=== PATIENT | female | born 1935 | race Caucasian/White ===

== ENCOUNTER 2021-10-11 18:06 | Emergency (ER) | payer MEDICARE, OTHER, SELFPAY ==
[2021-10-11 18:22] VITALS: BP 137/55; PULSE 72; RESP 16; TEMP 37.1; O2SAT 100
--- NOTE | 2021-10-11 18:48 | ED.BACK ---
HPI - Back Pain/Injury General Chief Complaint: Back Pain/Injury Stated Complaint: Lower Back Pain Time Seen by Provider: 10/11/21 18:39 Source: patient and RN notes reviewed Mode of arrival: ambulatory Limitations: no limitations History of Present Illness HPI Narrative: Patient presents today complaining of 3-day history of low back pain. Denies any injury or fall. States she did lift up her 2-year-old granddaughter, but denies any known pain following. Denies numbness or tingling in the extremities. Denies any radiation of the pain. Denies any loss of bowel or bladder control. Denies any urinary symptoms to include frequency, dysuria, or hematuria. She currently rates her back pain 8 and has been taking Tylenol without relief. She is also been using icy hot and a heating pad. No recent antibiotic use. MD elicited complaint: back pain Related Data Home Medications Medication Instructions Recorded Confirmed amlodipine 10 mg PO DAILY 10/11/21 10/11/21 famotidine 20 mg PO BID 10/11/21 10/11/21 fluticasone propionate 50 mcg INTRANASAL DAILY 10/11/21 10/11/21 isosorbide mononitrate 60 mg PO DAILY 10/11/21 10/11/21 metoprolol succinate 100 mg PO DAILY 10/11/21 10/11/21 mirtazapine 7.5 mg PO HS 10/11/21 10/11/21 paroxetine HCl 10 mg PO DAILY 10/11/21 10/11/21 pravastatin 40 mg PO DAILY 10/11/21 10/11/21 torsemide 5 mg PO DAILY 10/11/21 10/11/21 Allergies Allergy/AdvReac Type Severity Reaction Status Date / Time No Known Allergies Allergy Unverified 06/10/12 19:04 Review of Systems Review of Systems: CONSTITUTIONAL: Denies body aches, fever, chills, or sweats. EYES: Denies visual changes, redness, or discharge. ENT: Denies rhinorrhea, congestion, sore throat, or otalgia. CARDIOVASCULAR: Denies chest pain, palpitations, or edema. RESPIRATORY: Denies cough or dyspnea. GASTROINTESTINAL: Denies abdominal pain, nausea, vomiting, or diarrhea. GENITOURINARY: Denies dysuria or hematuria. SKIN: Denies rash, itching, or wounds. MUSCULOSKELETAL: Denies joint pain, or myalgia.+ Low back pain NEUROLOGIC: Denies headache, numbness, tingling, or weakness. PSYCH: Denies depression or anxiety. [facility] Past Medical History Medical History (Updated 10/11/21 @ 18:54 by Winsome Mancia, [facility], ) Chronic kidney disease High cholesterol Hypertension Comments At time of signature, I have reviewed and agree with nursing past medical, surgical, social and family history unless otherwise noted. Please see nursing chart for further information. There is no relevant family history pertinent to the presenting complaint Exam Narrative: GENERAL: Well-appearing, well-nourished, and in no acute distress. HEAD: Normocephalic, atraumatic. EYES: EOMI. No redness or drainage. Conjunctivae normal. ENT: Mucous membranes pink and moist. NECK: Normal AROM. CHEST: No respiratory distress. Clear to auscultation. HEART: Regular rate and rhythm. No murmur appreciated. Normal peripheral pulses. ABDOMEN: Soft, nontender, nondistended, normal active bowel sounds. Mild left CVAT MUSCULOSKELETAL: No bony tenderness of the thoracic and lumbar spine.. Right lower lumbar paraspinal muscle tenderness. No SI joint tenderness bilaterally. Distal sensation intact. Saddle sensation intact. Capillary refill normal. Dorsiflexion and plantarflexion strong and equal against resistance. EXTREMITIES: Normal range of motion. No edema. SKIN: Warm, dry, no rash. Capillary refill normal. Normal skin turgor. NEURO: No focal deficits. Alert and oriented x3. Gait steady. PSYCH: Normal affect. No signs of depression or anxiety. Course Course Level of Care: Express Care Visit Vital Signs Vital signs: Vital Signs Temperature 98.7 F 10/11/21 18:22 Pulse Rate 72 10/11/21 18:22 Respiratory Rate 16 10/11/21 18:22 Blood Pressure 137/55 L 10/11/21 18:22 Pulse Oximetry 100 10/11/21 18:22 Temperature 98.7 F 10/11/21 18:22 Pulse Rate 72
== END 2021-10-11 19:00 | disposition home or self-care (01) ==
PROVIDERS: Emergency Provider Nurse Practitioner; PCP Internal Medicine
DX: N39.0 Urinary tract infection, site not specified (principal); E78.00 Pure hypercholesterolemia, unspecified; I12.9 Hypertensive chronic kidney disease with stage 1 through stage 4 chronic kidney disease, or unspecified chronic kidney disease; N18.9 Chronic kidney disease, unspecified
CPT/HCPCS: 81003; 87077; 87086; 87186; 99213; G0463

== ENCOUNTER 2021-12-25 17:33 | Emergency (ER) | payer MEDICARE, OTHER, SELFPAY ==
[2021-12-25 17:44] VITALS: BP 100/75; PULSE 66; RESP 18; TEMP 36.4; O2SAT 100
--- NOTE | 2021-12-25 18:02 | ED.FEMALEGU ---
HPI - Female Genitourinary General Chief complaint: Back Pain/Injury Stated complaint: Lower Back Pain Time Seen by Provider: 12/25/21 18:00 Source: patient, family, RN notes reviewed and old records reviewed Mode of arrival: ambulatory Limitations: no limitations History of Present Illness HPI Narrative: 86-year-old female accompanied by daughter presents to [facility] with 1 week duration of low back pain with some cloudy odorous urine noted. Patient reports no fevers, chills, or sweats, denies any urinary frequency, no burning with urination no supra pubic discomfort no nausea or vomiting or any known fevers. Patient admits that she does not drink enough water, usually drinks 2 sodas a day and drinks one cup of coffee. Patient reports that she has not taken any AZO for urinary problems. Patient denies any other symptoms, states history of kidney disease. MD elicited complaint: back pain and other (odorous urine) Pertinent past history: other (previous UTI, kidney disease) Onset (ago): week(s) (1) Related Data Home Medications Medication Instructions Recorded Confirmed amlodipine 10 mg PO DAILY 10/11/21 12/25/21 famotidine 20 mg PO BID 10/11/21 12/25/21 fluticasone propionate 50 mcg INTRANASAL DAILY 10/11/21 12/25/21 isosorbide mononitrate 60 mg PO DAILY 10/11/21 12/25/21 metoprolol succinate 100 mg PO DAILY 10/11/21 12/25/21 mirtazapine 7.5 mg PO HS 10/11/21 12/25/21 paroxetine HCl 10 mg PO DAILY 10/11/21 12/25/21 pravastatin 40 mg PO DAILY 10/11/21 12/25/21 torsemide 5 mg PO DAILY 10/11/21 12/25/21 Allergies Allergy/AdvReac Type Severity Reaction Status Date / Time No Known Allergies Allergy Unverified 06/10/12 19:04 Review of Systems Review of Systems: CONSTITUTIONAL: Denies fever, chills, or sweats. EYES: Denies visual changes, redness, or discharge. ENT: Denies rhinorrhea, congestion, sore throat, or otalgia. CARDIOVASCULAR: Denies chest pain, palpitations, or edema. RESPIRATORY: Denies cough or dyspnea. GASTROINTESTINAL: Denies abdominal pain, nausea, vomiting, or diarrhea. GENITOURINARY: Denies dysuria or hematuria, states urine is cloudy and odorous SKIN: Denies rash or itching. MUSCULOSKELETAL: Positive for low back pain, joint pain, or myalgia.DENIES any flank pain NEUROLOGIC: Denies headache, numbness, or weakness. PSYCHIATRIC: Denies anxiety or depression. All systems reviewed & are unremarkable except as noted in HPI and below PMFSH Past Medical History Medical History (Updated 12/25/21 @ 19:46 by Jael Gonzalez NP) Chronic kidney disease High cholesterol Hypertension UTI (urinary tract infection) Surgical History Surgical History (Updated 12/25/21 @ 19:46 by Jael Gonzalez NP) H/O repair of right rotator cuff History of hysterectomy Social History Social History (Updated 12/25/21 @ 19:44 by Jael Gonzalez NP) Smoking status: Never smoker Alcohol intake: current Alcohol use details: rare social Substance use: never Living arrangements: with family Gender identity (if verbalized by the patient): Female Exam Narrative: GENERAL: Well-appearing, well-nourished, and in no acute distress. HEAD: Normocephalic, atraumatic. EYES: PERRLA and EOMI. ENT: Nares clear, no rhinorrhea or epistaxis. Mucous membranes moist. TMs normal with good light reflex throat pink with no lesions or exudates or tonsillar enlargement NECK: Supple. No lymphadenopathy CHEST: Clear to auscultation. No respiratory distress. SaO2 100% on room air HEART: Regular rate and rhythm. No murmur heard. Normal peripheral pulses. ABDOMEN: Soft, nontender, nondistended, normal active bowel sounds. Reports low back pain denies any CVA tenderness on palpation EXTREMITIES: Normal range of motion. No edema. SKIN: Warm, dry, no rash. NEURO: No focal deficits. Alert and oriented x3. Course Course Level of Care: Express Care Visit Vital Signs Vital signs: Vital Signs Temperature 36.4 C L 12/25/21
== END 2021-12-25 18:21 | disposition home or self-care (01) ==
PROVIDERS: Emergency Provider Registered Nurse; PCP Internal Medicine
DX: N39.0 Urinary tract infection, site not specified (principal); M54.50 Low back pain, unspecified; I12.9 Hypertensive chronic kidney disease with stage 1 through stage 4 chronic kidney disease, or unspecified chronic kidney disease; N18.9 Chronic kidney disease, unspecified; E78.00 Pure hypercholesterolemia, unspecified
CPT/HCPCS: 81003; 87077; 87086; 87186; 99213; G0463

== ENCOUNTER 2022-06-29 21:45 | Inpatient (IN) | payer MEDICARE, OTHER, SELFPAY ==
--- NOTE | ~2022-06-29 | US_ITS ---
EXAMINATION: US carotid duplex BI DATE: 06/30/2022 08:21 INDICATION: Right-sided weakness TECHNIQUE: Grayscale, color Doppler, and pulsed Doppler images of the cervical carotid arteries were obtained. The degree of vessel stenosis is placed in one of the following categories: normal, <50%, 5 0-69%, >=70% but less than near-occlusion, near-occlusion, or total occlusion. Note that percent sten osis relative to normal distal artery lumen diameter is indirectly measured from velocity measurement s as described by Matt, et al. Radiology 2003; 229:340-346. Notes: Normal: Peak systolic velocity <125 centimeters/sec and no plaque <50%. Peak systolic velocity <125 ( EDV <40; ICA/CCA PSV ratio <2.0; used these factors only a tandem lesions or low cardiac output or co ntralateral disease) 50-69 %: PSV 125-230 (EDV 40-100; ratio 2-4) >= 70% but less than near occlusion: PSV greater than 230 (EDV > 100; ratio> 4.0) Near Occlusion: PSV that is variable; markedly narrowed lumen Occlusion: Absent flow on color/spectral Doppler and no lumen on herrmann scale. COMPARISON: None. FINDINGS: RIGHT: The right common carotid artery (CCA) peak systolic velocity (PSV) is 74 cm/s. The right internal car otid artery (ICA) PSV is 93 cm/s. The right ICA end-diastolic velocity (EDV) is 22 cm/s. The right IC A/CCA PSV ratio is 1.2. The external carotid artery (ECA) PSV is 102 cm/s. There is antegrade flow in the right vertebral artery. LEFT: The left CCA PSV is 96 cm/s. The left ICA PSV is 70 cm/s. The left ICA EDV is 13 cm/s. The left ICA/C CA PSV ratio is 0.7. The ECA PSV is 94 cm/s. There is antegrade flow in the left vertebral artery. IMPRESSION: 1. Less than 50% stenosis in the right internal carotid artery by sonographic criteria. 2. Less than 50% stenosis in the left internal carotid artery by sonographic criteria. Reviewed, dictated and finalized at location A. IMPRESSION: 1. Less than 50% stenosis in the right internal carotid artery by sonographic [place]. 2. Less than 50% stenosis in the left internal carotid artery by sonographic flex torres.
--- NOTE | ~2022-06-29 | CT_ITS ---
EXAMINATION: CT abdomen pelvis wo con DATE: 06/30/2022 00:53 INDICATION: Right rib fractures. Right-sided pain and tenderness. TECHNIQUE: Computed tomography (CT) of the abdomen and pelvis was performed without intravenous contr ast. The dose-length product was 230.80 mGy-cm. Automated exposure control and iterative reconstructi on technique were employed. COMPARISON: CT dated 08/20/2014. FINDINGS: There are acute right ninth and 10th rib fractures. Heart size normal. No significant pleur al or pericardial effusion. Small hiatal hernia. There is dependent atelectasis. Small subcentimeter hypodensity of the liver, likely benign. The spleen, pancreas, adrenal glands are unremarkable. There is bilateral renal atrophy. Gallbladder is present. Colonic diverticulosis without evidence for dive rticulitis. Nonobstructive bowel gas pattern. No free air or free fluid. The spleen, pancreas, adrena l glands are unremarkable. No renal/ureteral stones. Bladder is unremarkable. No significant vascular abnormality. No lymphadenopathy. Moderate lumbar spondylosis. IMPRESSION: 1. Acute right ninth and 10th rib fractures. 2: No acute abnormality of the abdomen or pelvis. Reviewed, dictated and finalized at location A.
--- NOTE | ~2022-06-29 | CT_ITS ---
EXAMINATION: CT brain wo con DATE: 07/02/2022 18:25 INDICATION: Right-sided hemiparesis TECHNIQUE: Computed tomography (CT) of the head was performed without intravenous contrast. Sagittal and coronal reconstructions were performed. The mA was adjusted according to patient size. Iterative reconstruction technique was employed. The dose-length product was 605.33 mGy-cm. COMPARISON: Brain MR dated 06/30/2022 FINDINGS: No acute intracranial hemorrhage, acute infarction or abnormal extra axial fluid collection. Again se en is a 3.8 x 2.3 x 3.3 cm probably cystic mass in the left parietal lobe and a more ill-defined and slightly higher attenuation mass in the pericallosal left frontal lobe which correspond to enhancing lesions on the prior brain MR concerning for metastatic disease. A few additional smaller enhancing l esions seen on the prior MRI are more difficult to distinguish from the surrounding brain on the curr ent noncontrast CT. There is moderate scattered white matter hypoattenuation consistent with chronic small vessel ischemic disease. Ventricles are normal in size with mild mass effect upon the left late ral ventricle resulting from the pericallosal lesion. Changes of bilateral intraocular lens replaceme nt. The orbits, paranasal sinuses and mastoid air cells are normal. IMPRESSION: 1. A couple intra-axial masses in the left frontal and parietal lobes which along with a few addition al more subtle lesions all demonstrate enhancement on prior brain MR most likely representing metasta tic disease. No hemorrhage or other acute intracranial process. Reviewed, dictated and finalized at location A. IMPRESSION: 1. A couple intra-axial masses in the left frontal and parietal lobes which gris ng with a few additional more subtle lesions all demonstrate enhancement on glenn or brain MR most likely representing metastatic disease. No hemorrhage or other acute intracranial process.
--- NOTE | ~2022-06-29 | CT_ITS ---
EXAMINATION: CT chest high resolution wo dc DATE: 06/30/2022 14:34 INDICATION: Metastatic disease. TECHNIQUE: Computed tomography (CT) of the chest was performed without intravenous contrast. The dose -length product was 124.21 mGy-cm. Automated exposure control and iterative reconstruction technique were employed. COMPARISON: CT abdomen dated 06/30/2022 FINDINGS: There is atherosclerosis of the aorta. Small hiatal hernia. Fluid in the superior pericardi al recess noted. No lymphadenopathy. Acute right ninth and 10th rib fractures. No pneumothorax. There is apical pleural thickening/scarring. Emphysema. No endobronchial lesions. There is dependent atele ctasis. There are scattered calcified granulomata. No focal airspace consolidation. Mild thoracic spo ndylosis. No focal lytic or blastic lesions. IMPRESSION: 1. Acute right ninth and 10th rib fractures. 2: Emphysema. 3: Small hiatal hernia. Reviewed, dictated and finalized at location A.
--- NOTE | ~2022-06-29 | XR_ITS ---
[[id number] ] INDICATION: Status post fall. Right rib pain. TECHNIQUE: Frontal projection of the upper right ribs, frontal projection of the lower right ribs, ob lique projection of all the right ribs, frontal inspiratory chest x-ray for interpretation. FINDINGS: There are acute right ninth and 10th there is a possible right sixth rib fracture. Rib frac tures.. There are no soft tissue abnormality seen. The lungs are clear. The lungs are hyperinflate d which is consistent with, but not diagnostic of chronic obstructive pulmonary disease. There are alexis rgical changes in the right humeral head. There is atherosclerosis. Osteopenia. No pneumothorax. IMPRESSION: 1: Acute right ninth and 10th rib fractures. Possible right sixth rib fracture. Reviewed, dictated and finalized at location A.
--- NOTE | ~2022-06-29 | MR_ITS ---
EXAMINATION: MR brain/brain stem wo/w con DATE: 06/30/2022 07:55 INDICATION: Right-sided weakness TECHNIQUE: Magnetic resonance imaging (MRI) of the brain and brainstem was performed without with 10 cc MultiHance intravenous contrast. Sequences included sagittal and axial T1-weighted SE, axial diffu carmelo-weighted FS SE, axial T2*-weighted GRE, axial T2-weighted FLAIR Propeller, and axial T2-weighted Propeller. Apparent diffusion coefficient (ADC) maps were created. COMPARISON: None. FINDINGS: No acute intracranial hemorrhage or infarction. There are at least 6 enhancing masses in th e left hemisphere involving the parietal lobe, largest measuring 3.6 x 2.3 cm with central necrosis. There is a possible subtle enhancing lesion in the right parietal lobe medially, series 9 image 18. N o ventriculomegaly or midline shift. There are scattered moderate periventricular and subcortical whi te matter changes, most likely related to small vessel ischemic disease (microangiopathy). Paranasal sinuses are pneumatized. Orbits are symmetric without disconjugate gaze. Structures of the posterior fossa including 7/8th cranial nerve complexes are normal. IMPRESSION: 1. Multiple enhancing masses of the left parietal and possibly the right parietal lobes, most likely metastatic disease. 2: Chronic age-related findings. Dr. Evan Villagomez discussed with the patient's nurse INESSA under medical floor at 06/30/2022 09:20 CDT. Reviewed, dictated and finalized at location A. IMPRESSION: 1. Multiple enhancing masses of the left parietal and possibly the right pariet al lobes, most likely metastatic disease. 2: Chronic age-related findings. Dr. Evan Villagomez discussed with the patient's nurse INESSA under medical floor at 06/08 09:20 CDT.
[2022-06-29 21:56] VITALS: BP 158/76; PULSE 64; RESP 18; TEMP 36.5; O2SAT 100
[2022-06-29] MEDS: HYDROcodone/acetaminophen (*CRX) 5-325 MG TABLET 1 TAB PO (23:36)
[2022-06-29 23:48] LABS: Basophils Absolute Auto 0.1 K/mm3 (0.0-0.1); Basophils Percent Auto 0.5 % (0.2-1.2); Eosinophils Absolute Auto 0.2 K/mm3 (0-0.3); Eosinophils Percent Auto 1.8 % (0-4.4); Hematocrit 40.5 % (37.0-47.0); Hemoglobin 13.4 g/dL (12.0-15.0); Immature Granulocyte Absolute 0.03 K/mm3 (0.00-0.031); Immature Granulocyte Percent A 0.2 % (0-0.5); Lymphocytes Absolute Auto 1.27 K/mm3 (0.9-3.2); Lymphocytes Percent Auto 10.3 % (18.3-44.2); Mean Corpuscular HGB Conc 33.1 g/dl (32-36); Mean Corpuscular Hemoglobin 31.1 pg (26-34); Mean Platelet Volume 10.8 fl (7.4-10.4); Monocytes Absolute Auto 0.9 K/mm3 (0.1-0.6); Monocytes Percent Auto 7.2 % (2.6-8.5); Neutrophils Absolute Auto 9.9 K/mm3 (1.3-6.7); Platelet Count Result 235 k/mm3 (150-375); Red Blood Count 4.31 M/mm3 (4.2-5.4); Red Cell Distribution Width 12.4 % (11.5-14.5); White Blood Count 12.4 K/mm3 (4.5-10.0)
[2022-06-30] VITALS (13 sets, daily range): BP systolic 122–179; BP diastolic 48–98; PULSE 52–69; RESP 14–20; TEMP 35.7–36.9; O2SAT 94–98; BMI 23.1
--- NOTE | 2022-06-30 | ECHO_ITS ---
Patient Info Name: Afia Benjamin Age: 86 years : 1935 Gender: Female Ht: 61 in Wt: 122 lbs BSA: 1.55 m2 HR: 61 bpm BP: 179 / 60 mmHg Heart Rhythm: Sinus Rhythm Exam Date: 06/30/2022 2:06 PM Exam Location: [facility] Patient Status: Inpatient Admit Date: 06/29/2022 Staff Ordering Physician: Michael Branham Tank Worker: Maico Webster RDCS Attending Provider: Xiang Zacarias MD Referring Physician: Yonas CROW; Exam Type: CA echo doppler color flow Study Info Indications - CVA Complete two-dimensional, color flow and Doppler transthoracic echocardiogram is performed. Summary 1. Normal left ventricular size with borderline concentric hypertrophy. Sigmoid septum noted. Good systolic function of all segments with ejection fraction of 65-70%. Grade 2 diastolic dysfunction is present. 2. Complete two-dimensional, color flow and Doppler transthoracic echocardiogram is performed. 3. Left atrial chamber dimension is moderately enlarged. 4. Unable to calculate pulmonary artery pressure on this study. 5. No significant valvular stenosis or regurgitation. 6. Normal sinus rhythm. Recommendations * Normal left ventricular size with borderline concentric hypertrophy and sigmoid septum. Ejection fraction 65-70%. Grade 2 diastolic dysfunction is present. No segmental wall motion abnormalities. Left Ventricle Left ventricular chamber dimension is normal. Left ventricular systolic function is normal, estimated at 65-70%. There is mildly increased left ventricular wall thickness. Left ventricular septal wall motion is normal. The left ventricular diastolic function is grade II diastolic dysfunction. Right Ventricle Right ventricular chamber dimension is normal. Right ventricular systolic function is normal. Left Atria Left atrial chamber dimension is moderately enlarged. Right Atria Right atrial chamber dimension is normal. Aortic Valve The aortic valve is trileaflet. There is no aortic valve sclerosis. There is no aortic valve stenosis. There is no aortic valve regurgitation. Pulmonic Valve The pulmonic valve is normal. There is no pulmonic valve stenosis. There is no pulmonic regurgitation. Mitral Valve The mitral valve has normal leaflets. There is no mitral valve stenosis. There is trace mitral valve regurgitation. The mitral valve annulus is mildly calcified. Tricuspid Valve The tricuspid valve leaflets are normal. There is no significant tricuspid valve stenosis. There is trace tricuspid valve regurgitation. No pulmonary hypertension, estimated pulmonary arterial systolic pressure is Empty. Pericardium/Pleural The pericardium appears normal. There is no pericardial effusion. Inferior Vena Cava Normal inferior vena cava with >50% collapse upon inspiration consistent with Empty right atrial pressure, Empty. Aorta The aortic root size at the sinus of Valsalva is normal. The prox ascending aorta size is normal. Left Ventricular Outflow Tract Name Value Normal LVOT 2D LVOT Diameter 1.8 cm LVOT Doppler LVOT Peak Gradient
[2022-06-30 00:05] LABS: Anion Gap 14 mmol/L (8-16); Blood Urea Nitrogen 37 mg/dL (7-17); Calcium 9.5 mg/dL (8.4-10.2); Carbon Dioxide 24 mmol/L (22-30); Chloride 105 mmol/L (98-107); Estimated CRCL calculation 16 ml/min; Estimated Glomerular Filt Rate 27; Glucose 99 mg/dL (65-110); Potassium 3.9 mmol/L (3.4-5.0); Sodium 143 mmol/L (137-145)
--- NOTE | 2022-06-30 00:42 | ED.FALL ---
HPI - Fall General Chief Complaint: Fall Stated Complaint: Fall, Side Pain, Denies Head Time Seen by Provider: 06/29/22 23:20 History of Present Illness HPI Narrative: Per family at bedside, about 6 days ago the patient had had a bad headache and started having weakness in her right side, she had seen her doctor who had arranged for outpatient work-up for her possible TIA, while she was still slightly unsteady she was coming out of the shower and lost her balance and fell onto her right side Related Data Home Medications Medication Instructions Recorded Confirmed amlodipine 10 mg tablet 10 mg PO DAILY 10/11/21 06/30/22 famotidine 20 mg tablet 20 mg PO BID 10/11/21 06/30/22 isosorbide mononitrate 60 mg 60 mg PO QAM 10/11/21 06/30/22 tablet,extended release 24 hr metoprolol succinate 100 mg 100 mg PO DAILY 10/11/21 06/30/22 tablet,extended release 24 hr mirtazapine 7.5 mg tablet 7.5 mg PO HS 10/11/21 06/30/22 paroxetine HCl 10 mg tablet 10 mg PO DAILY 10/11/21 06/30/22 pravastatin 40 mg tablet 40 mg PO DAILY 10/11/21 06/30/22 torsemide 10 mg tablet 5 mg PO DAILY 10/11/21 06/30/22 aspirin 81 mg tablet 81 mg PO DAILY 06/30/22 06/30/22 Allergies Allergy/AdvReac Type Severity Reaction Status Date / Time niacin Allergy Redness of Verified 06/29/22 21:47 Skin Review of Systems Review of Systems: CONST: No fever. HEENT: No sore throat C/V: No chest pain RESP: Not short of breath unless she is trying to take deep breaths GI: Reports abdominal pain : No dysuria. M/S: No joint pain. SKIN: No rash. NEURO: Weakness right arm/leg PSYCH: [No depression] PMFSH Past Medical History Medical History Chronic kidney disease High cholesterol Hypertension UTI (urinary tract infection) Surgical History Surgical History H/O repair of right rotator cuff History of hysterectomy Family History Family History Father Acute myocardial infarction Sibling Ovarian cancer Social History Social History Smoking status: Never smoker Alcohol intake: former Alcohol use details: rare social Substance use: never Gender identity (if verbalized by the patient): Female Spiritual care concerns: No Exam Narrative: EXAMINATION OF ORGAN SYSTEMS/BODY AREAS: Constitutional: Vital signs per nursing GENERAL: Appears slightly uncomfortable in pain, right arm held close to body HEAD: Normal with no signs of head trauma. EYES: EOMI, conjunctiva normal ENT: Hearing grossly intact LUNGS: Clear lungs bilaterally, no severe respiratory distress HEART: [Regular rate and rhythm] ABD: [Soft], [tender to palpation] right side EXT: Normal range of motion SKIN: [No rashes or lesions.] NEURO: [Alert and oriented x 3. Very minimal drift of RUE compared to left but otherwise good strength.] PSYCH: Normal affect Course Vital Signs Vital signs: Vital Signs Temperature 97.7 F 06/29/22 21:56 Pulse Rate 64 06/29/22 21:56 Respiratory Rate 18 06/29/22 21:56 Blood Pressure 158/76 H 06/29/22 21:56 Pulse Oximetry 100 06/29/22 21:56 Oxygen Delivery Room Air 06/29/22 21:56 Temperature 97.2 F L 06/30/22 02:00 Pulse Rate 68 06/30/22 02:00 Respiratory Rate 18 06/30/22 02:00 Blood Pressure 157/58 H 06/30/22 02:00 Pulse Oximetry 96 06/30/22 02:00 Oxygen Delivery Room Air 06/30/22 02:20 MDM - Fall MDM Narrative Medical decision making narrative: 86-year-old female presents with fall from shower and rib pain, vitals stable here, XR of ribs do show fractures; with her abdominal pain will obtain a CT to rule out intra-abdominal injury. Given her age and the multiple broken ribs, as well as her recent right-sided weakness concerning for stroke that likely led to her falls, I do feel she should be admit
[2022-06-30 01:47] LABS: SARS-CoV-2 RNA PCR Negative
--- NOTE | 2022-06-30 03:00 | PM.IMHP ---
H&P: HPI History of Present Illness Date/Time: 06/30/22 0300 Chief Complaint: right sided weakness Narrative: Patient is an 86-year-old female with a past medical history of hypertension, hyperlipidemia, chronic kidney disease who presented to the ED after falling in the shower. Patient stated that she got a little dizzy while showering and fell out and was half and half out sugars screaming her daughter came and saw her. She stated about 2 weeks ago she went to [facility], when she got back she she was feeling fine, however, the next morning she woke up with right sided upper and lower extremity weakness and just felt Weird. She stated that her symptoms have been getting better, however, she is still having some right leg weakness. She denied having any slurred speech, facial droop, visual changes, or loss of conscientiousness. She did go to see her PCP who told her that she had a stroke, but it does not seem that she had any further workup. She did state that she has been able to walk. She also stated that she is aware that she broke two ribs. Currently she stated that she is comfortable. She denies any chest pain, shortness of breath, nausea, vomiting, diarrhea, constipation, weakness, fatigue. MRI and carotid dopplers are ordered. Patient is being admitted to the hospitalist service under observation Review of Systems Review of Systems: All systems reviewed & are unremarkable except as noted in HPI and below PMFSH Past Medical History Medical History (Updated 06/30/22 @ 13:11 by Kuldeep Urrutia MD) Chronic kidney disease High cholesterol Hypertension UTI (urinary tract infection) Surgical History Surgical History H/O repair of right rotator cuff History of hysterectomy Family History Family History (Updated 06/30/22 @ 07:55 by NEMO Chacon) Father Acute myocardial infarction Stomach cancer Heart disease Sibling Ovarian cancer Stomach cancer Diabetes mellitus Social History Social History Smoking status: Never smoker Alcohol intake: former Alcohol use details: rare social Substance use: never Gender identity (if verbalized by the patient): Female Spiritual care concerns: No Meds Home Medications and Allergies Home Medications Medication Instructions Recorded Confirmed Type amlodipine 10 mg tablet 10 mg PO DAILY 10/11/21 06/30/22 History famotidine 20 mg tablet 20 mg PO BID 10/11/21 06/30/22 History isosorbide mononitrate 60 mg 60 mg PO QAM 10/11/21 06/30/22 History tablet,extended release 24 hr metoprolol succinate 100 mg 100 mg PO DAILY 10/11/21 06/30/22 History tablet,extended release 24 hr mirtazapine 7.5 mg tablet 7.5 mg PO HS 10/11/21 06/30/22 History paroxetine HCl 10 mg tablet 10 mg PO DAILY 10/11/21 06/30/22 History pravastatin 40 mg tablet 40 mg PO DAILY 10/11/21 06/30/22 History torsemide 10 mg tablet 5 mg PO DAILY 10/11/21 06/30/22 History aspirin 81 mg tablet 81 mg PO DAILY 06/30/22 06/30/22 History Allergies Allergy/AdvReac Type Severity Reaction Status Date / Time niacin Allergy Redness of Verified 06/29/22 21:47 Skin Vital Signs Vital Signs - 24 hr 06/29/22 21:56 06/30/22 01:27 06/30/22 02:20 Temperature 97.7 F Pulse Rate 64 69 Respiratory Rate 18 20 Blood Pressure 158/76 H 157/66 H Pulse Oximetry 100 96 Oxygen Delivery Room Air Room Air 06/30/22 02:00 06/30/22 04:00 06/30/22 06:00 Temperature 97.2 F L 96.5 F L Pulse Rate 68 55 L 52 L Respiratory Rate 18 16 Blood Pressure 157/58 H 152/50 H Pulse Oximetry 96 94 Oxygen Delivery Exam Const: General: cooperative, healthy appearing, no acute distress, well developed, alert and awake Nutritional Appearance: well nourished Orientation/consciousness: patient oriented x3 Limitations: no limitations HENMT: Head: normal to inspection Ears: hearin
[2022-06-30] MEDS: FAMOTIDINE 20 MG TABLET PO ×2 (10:25→17:34)
[2022-06-30] MEDS: amLODIPine BESYLATE 5 MG TABLET 10 MG PO (10:25)
[2022-06-30] MEDS: ASPIRIN 81 MG CHEWABLE TABLET PO (10:25)
[2022-06-30] MEDS: METOPROLOL SUCCINATE EXT REL 100 MG TABCR PO (10:25)
[2022-06-30] MEDS: ISOSORBIDE MONONITRATE 60 MG TAB.ER.24H PO (10:25)
[2022-06-30] MEDS: PARoxetine 10 MG TABLET PO (10:26)
[2022-06-30] MEDS: PRAVASTATIN SODIUM 20 MG TABLET 40 MG PO (10:26)
[2022-06-30] MEDS: TORSEMIDE 10 MG TABLET 5 MG PO (10:26)
[2022-06-30 10:27] LABS: Basophils Percent Auto 0.5 % (0.2-1.2); Eosinophils Absolute Auto 0.3 K/mm3 (0-0.3); Eosinophils Percent Auto 3.8 % (0-4.4); Hematocrit 41.7 % (37.0-47.0); Hemoglobin 13.2 g/dL (12.0-15.0); Immature Granulocyte Absolute 0.02 K/mm3 (0.00-0.031); Immature Granulocyte Percent A 0.2 % (0-0.5); Immature Platelet Fraction Pct 4.2 % (0.9-11.2); Lymphocytes Absolute Auto 1.58 K/mm3 (0.9-3.2); Lymphocytes Percent Auto 19.5 % (18.3-44.2); Mean Corpuscular HGB Conc 31.7 g/dl (32-36); Mean Corpuscular Volume 97.9 fl (80-100); Mean Platelet Volume 10.9 fl (7.4-10.4); Monocytes Absolute Auto 0.6 K/mm3 (0.1-0.6); Monocytes Percent Auto 7.8 % (2.6-8.5); Neutrophils Absolute Auto 5.5 K/mm3 (1.3-6.7); Neutrophils Percent Auto 68.2 % (45.5-73.1); Nucleated Red Blood Cells Perc 0.2 % (0.0-0.2); Platelet Count Result 239 k/mm3 (150-375); Red Blood Count 4.26 M/mm3 (4.2-5.4); Red Cell Distribution Width 12.8 % (11.5-14.5); White Blood Count 8.1 K/mm3 (4.5-10.0)
[2022-06-30 10:30] LABS: Alanine Aminotransferase 18 U/L (6-35); Albumin Level 4.1 g/dL (3.5-5.1); Alkaline Phosphatase 74 U/L (38-126); Anion Gap 9 mmol/L (8-16); Aspartate Amino Transferase 28 U/L (14-36); Bilirubin,Total 0.5 mg/dL (0.2-1.3); Blood Urea Nitrogen 31 mg/dL (7-17); Calcium 9.3 mg/dL (8.4-10.2); Carbon Dioxide 26 mmol/L (22-30); Chloride 106 mmol/L (98-107); Estimated CRCL calculation 17 ml/min; Estimated Glomerular Filt Rate 29; Glucose 141 mg/dL (65-110); Potassium 3.4 mmol/L (3.4-5.0); Sodium 141 mmol/L (137-145)
--- NOTE | 2022-06-30 11:15 | P.PNIM_ITS ---
Progress Note: A&P Assessment and Plan (1) Brain lesion: Code(s): G93.9 - Disorder of brain, unspecified Status: Acute Assessment and Plan: * MRI indicated 6 metastatic lesions consistent with cancer * CA 125, 19-1, carcinoembryonic antigen ordered and pending * CT of the chest order to see if a primary source is identified * CT abd/pel just indicate a dense lesion in the liver. * Onc consulted thank you (2) Rib fractures: Code(s): S22.49XA - Multiple fractures of ribs, unspecified side, initial encounter for closed fracture Status: Acute Assessment and Plan: * Rib fracture noted on CT ribs 9-10 fracture * Pain control * Monitor for changes (3) Hypertension: Code(s): I10 - Essential (primary) hypertension Status: Acute Assessment and Plan: * BP elevated at 152/50 * Continue home medications * Trend BP * Adjust therapy as indicated (4) Chronic kidney disease: Code(s): N18.9 - Chronic kidney disease, unspecified Status: Acute Assessment and Plan: * Current BUN/Cr 31/1.70 * Unknown baseline * avoid nephrotoxic medications * Trend labs * Adjust therapy as indicated (5) High cholesterol: Code(s): E78.00 - Pure hypercholesterolemia, unspecified Status: Acute Assessment and Plan: * Continue home statin medications (6) Paraparesis: Code(s): G82.20 - Paraplegia, unspecified Status: Acute Assessment and Plan: * Notable right sided weakness 2 weeks ago * Right side arm and leg affected * Continue home aspirin, statin, consider Plavix * Brain MRI Multiple enhancing masses of the left parietal and possibly the right parietal lobes, most likely metastatic disease. * Carotid Doppler <50% carotid doppler * NIH not valid since last known normal was 2 weeks ago * Not qualified for tPA * Neurology consulted Time Spent With Patient Time with patient: Greater than 35 minutes Subjective Date/time seen: 06/30/221114 Interval history: 06/30/221114 Patient seems to be doing okay today. I did explain to her what her MRI findings were with some 6 lesions. Consult Oncology and started the workup for metastatic disease. Patient seems to take it okay but then not okay. She denies any chest pain, shortness of breath, nausea, vomiting, diarrhea, constipation. her daughter was present as well and would like for the patient to have outpatient PT OT. 06/30/22? 0300 ? Patient is an 86-year-old female with a past medical history of hypertension, hyperlipidemia, chronic kidney disease who presented to the ED after falling in the shower.? Patient stated that she got a little dizzy while showering and fell out and was half and half out sugars screaming her daughter came and saw her.? She stated about 2 weeks ago she went to [facility], when she got back she she was feeling fine, however, the next morning she woke up with right sided upper and lower extremity weakness and just felt Weird. ? She stated that her symptoms have been getting better, however, she is still having some right leg weakness.? She denied having any slurred speech, facial droop, visual changes, or loss of conscientiousness.? She did go to see her PCP who told her that she had a stroke, but it does not seem that she had any further workup.? She did state that she has been able to walk.? She also stated that she is aware that she broke two ribs.? C
--- NOTE | 2022-06-30 11:15 | PM.IMPN ---
Progress Note: A&P Assessment and Plan (1) Brain lesion: Code(s): G93.9 - Disorder of brain, unspecified Status: Acute Assessment and Plan: MRI indicated 6 metastatic lesions consistent with cancer CA 125, 19-1, carcinoembryonic antigen ordered and pending CT of the chest order to see if a primary source is identified CT abd/pel just indicate a dense lesion in the liver. Onc consulted thank you (2) Rib fractures: Code(s): S22.49XA - Multiple fractures of ribs, unspecified side, initial encounter for closed fracture Status: Acute Assessment and Plan: Rib fracture noted on CT ribs 9-10 fracture Pain control Monitor for changes (3) Hypertension: Code(s): I10 - Essential (primary) hypertension Status: Acute Assessment and Plan: BP elevated at 152/50 Continue home medications Trend BP Adjust therapy as indicated (4) Chronic kidney disease: Code(s): N18.9 - Chronic kidney disease, unspecified Status: Acute Assessment and Plan: Current BUN/Cr 31/1.70 Unknown baseline avoid nephrotoxic medications Trend labs Adjust therapy as indicated (5) High cholesterol: Code(s): E78.00 - Pure hypercholesterolemia, unspecified Status: Acute Assessment and Plan: Continue home statin medications (6) Paraparesis: Code(s): G82.20 - Paraplegia, unspecified Status: Acute Assessment and Plan: Notable right sided weakness 2 weeks ago Right side arm and leg affected Continue home aspirin, statin, consider Plavix Brain MRI Multiple enhancing masses of the left parietal and possibly the right parietal lobes, most likely metastatic disease. Carotid Doppler <50% carotid doppler NIH not valid since last known normal was 2 weeks ago Not qualified for tPA Neurology consulted Time Spent With Patient Time with patient: Greater than 35 minutes Subjective Date/time seen: 06/30/22 111 Interval history: 06/30/221114 Patient seems to be doing okay today. I did explain to her what her MRI findings were with some 6 lesions. Consult Oncology and started the workup for metastatic disease. Patient seems to take it okay but then not okay. She denies any chest pain, shortness of breath, nausea, vomiting, diarrhea, constipation. her daughter was present as well and would like for the patient to have outpatient PT OT. 06/30/22? 0300 ? Patient is an 86-year-old female with a past medical history of hypertension, hyperlipidemia, chronic kidney disease who presented to the ED after falling in the shower.? Patient stated that she got a little dizzy while showering and fell out and was half and half out sugars screaming her daughter came and saw her.? She stated about 2 weeks ago she went to [facility], when she got back she she was feeling fine, however, the next morning she woke up with right sided upper and lower extremity weakness and just felt Weird. ? She stated that her symptoms have been getting better, however, she is still having some right leg weakness.? She denied having any slurred speech, facial droop, visual changes, or loss of conscientiousness.? She did go to see her PCP who told her that she had a stroke, but it does not seem that she had any further workup.? She did state that she has been able to walk.? She also stated that she is aware that she broke two ribs.? Currently she stated that she is comfortable.? She denies any chest pain, shortness of breath, nausea, vomiting, diarrhea, constipation, weakness, fatigue.? MRI and carotid dopplers are ordered.? Review of Systems Review of Systems: All systems reviewed & are unremarkable except as noted in HPI and below Exam Narrative: Const:?? General: cooperati ve, healthy appear ing, no acute dist ress, well develop
--- NOTE | 2022-06-30 12:58 | PC.NURSE ---
Patient complaining of pain with no pain medications on hand. This nurse notified hospitalistAlan. New orders received.
--- NOTE | 2022-06-30 13:02 | WPDNEURCNPN ---
Assessment and Plan Assessment and plan (1) Chronic kidney disease: Code(s): N18.9 - Chronic kidney disease, unspecified Status: Acute (2) Rib fractures: Code(s): S22.49XA - Multiple fractures of ribs, unspecified side, initial encounter for closed fracture Status: Acute (3) Generalized weakness: Code(s): R53.1 - Weakness Status: Acute (4) Paraparesis: Code(s): G82.20 - Paraplegia, unspecified Status: Acute Assessment and Plan: generalized weakness with gait dysfunction an abnormal MRI to the primary at this particular time unclear further workup will be carried out, discuss with her daughter Consult date: 06/30/22 Time Seen: 12:00 HPI: Afia Benjamin is a 86 year old female Has been admitted to the hospital through the emergency room for the complaints of headache and right-sided weakness she has seen her family physician who had arranged for the outpatient workup for the possible TIA. Patient takes multiple medication as an outpatient which include amlodipine 10 mg daily, isosorbide mononitrate 60 mg extended release, metoprolol 100 mg extended release, minute has a pain 7.5 mg at night, paroxetine 10 mg daily, torsemide 10 mg half a tablet daily, and aspirin 81 mg daily, reportedly she is allergic to niacin only, she does have ongoing history of chronic renal disease, hypercholesterolemia, and hypertension, she is a former alcohol intake but never smoker, initial evaluation revealed her to have normal vital signs except the blood pressure 157/58 normal CBC normal basic metabolic panel with BUN of 37 creatinine of 1.80 and x-ray chest with the right Gurwinder fracture, Doppler study of the carotid documented acute right 9th and 10th rib fracture with the possibility of a right 6th rib involvement also abdominal and pelvic CT scan otherwise negative but MRI of the brain revealed multiple enhancing masses of the left parietal and possibly right parietal lobes raising the possibility of metastatic disease Review of Systems Review of Systems: All systems reviewed & are unremarkable except as noted in HPI and below PMFSH Past Medical History Medical History (Updated 06/30/22 @ 13:11 by Kuldeep Urrutia MD) Chronic kidney disease High cholesterol Hypertension UTI (urinary tract infection) Surgical History Surgical History H/O repair of right rotator cuff History of hysterectomy Family History Family History (Updated 06/30/22 @ 07:55 by NEMO Chacon) Father Acute myocardial infarction Stomach cancer Heart disease Sibling Ovarian cancer Stomach cancer Diabetes mellitus Social History Social History Smoking status: Never smoker Alcohol intake: former Alcohol use details: rare social Substance use: never Gender identity (if verbalized by the patient): Female Spiritual care concerns: No Meds Home Medications and Allergies Home Medications Medication Instructions Recorded Confirmed Type amlodipine 10 mg tablet 10 mg PO DAILY 10/11/21 06/30/22 History famotidine 20 mg tablet 20 mg PO BID 10/11/21 06/30/22 History isosorbide mononitrate 60 mg 60 mg PO QAM 10/11/21 06/30/22 History tablet,extended release 24 hr metoprolol succinate 100 mg 100 mg PO DAILY 10/11/21 06/30/22 History tablet,extended release 24 hr mirtazapine 7.5 mg tablet 7.5 mg PO HS 10/11/21 06/30/22 History paroxetine HCl 10 mg tablet 10 mg PO DAILY 10/11/21 06/30/22 History pravastatin 40 mg tablet 40 mg PO DAILY 10/11/21 06/30/22 History torsemide 10 mg tablet 5 mg PO DAILY 10/11/21 06/30/22 History aspirin 81 mg tablet 81 mg PO DAILY 06/30/22 06/30/22 History Allergies Allergy/AdvReac Type Severity Reaction Status Date / Time niacin Allergy Redness of Verified 06/29/22 21:47 Skin Vital Signs Vital Signs - 24 hr 06/29/22 21:56 06/30/22
[2022-06-30 14:10] LABS: Carcinoembryonic Antigen 1.1 ng/mL (0.0-3.0)
[2022-06-30] MEDS: ACETAMINOPHEN 500 MG TABLET 1000 MG PO (15:04)
[2022-06-30] MEDS: HYDROcodone/acetaminophen (*CRX) 5-325 MG TABLET 1 TAB PO (19:08)
[2022-06-30] MEDS: MIRTAZAPINE 7.5 MG TABLET PO (20:28)
[2022-07-01] VITALS (15 sets, daily range): BP systolic 114–171; BP diastolic 55–108; PULSE 46–68; RESP 14–18; TEMP 36.1–36.6; O2SAT 94–99
[2022-07-01] MEDS: METOPROLOL SUCCINATE EXT REL 100 MG TABCR PO (09:32)
[2022-07-01] MEDS: amLODIPine BESYLATE 5 MG TABLET 10 MG PO (09:34)
[2022-07-01] MEDS: PARoxetine 10 MG TABLET PO (09:35)
[2022-07-01] MEDS: FAMOTIDINE 20 MG TABLET PO ×2 (09:35→16:58)
[2022-07-01] MEDS: ISOSORBIDE MONONITRATE 60 MG TAB.ER.24H PO (09:35)
[2022-07-01] MEDS: PRAVASTATIN SODIUM 20 MG TABLET 40 MG PO (09:35)
[2022-07-01] MEDS: ENOXAPARIN 30 MG/0.3 ML SYRINGE SUB-Q (09:35)
[2022-07-01] MEDS: ASPIRIN 81 MG CHEWABLE TABLET PO (09:36)
[2022-07-01] MEDS: TORSEMIDE 10 MG TABLET 5 MG PO (09:40)
[2022-07-01 09:58] LABS: Basophils Absolute Auto 0.1 K/mm3 (0.0-0.1); Basophils Percent Auto 0.5 % (0.2-1.2); Eosinophils Absolute Auto 0.5 K/mm3 (0-0.3); Eosinophils Percent Auto 4.5 % (0-4.4); Hematocrit 42.2 % (37.0-47.0); Hemoglobin 14.2 g/dL (12.0-15.0); Immature Granulocyte Absolute 0.02 K/mm3 (0.00-0.031); Immature Granulocyte Percent A 0.2 % (0-0.5); Lymphocytes Absolute Auto 1.32 K/mm3 (0.9-3.2); Lymphocytes Percent Auto 12.3 % (18.3-44.2); Mean Corpuscular HGB Conc 33.6 g/dl (32-36); Mean Corpuscular Volume 92.1 fl (80-100); Mean Platelet Volume 10.8 fl (7.4-10.4); Monocytes Absolute Auto 0.8 K/mm3 (0.1-0.6); Monocytes Percent Auto 7.7 % (2.6-8.5); Neutrophils Percent Auto 74.8 % (45.5-73.1); Platelet Count Result 241 k/mm3 (150-375); Red Blood Count 4.58 M/mm3 (4.2-5.4); Red Cell Distribution Width 12.7 % (11.5-14.5); White Blood Count 10.7 K/mm3 (4.5-10.0)
[2022-07-01 10:11] LABS: Alanine Aminotransferase 18 U/L (6-35); Albumin Level 4.1 g/dL (3.5-5.1); Alkaline Phosphatase 73 U/L (38-126); Anion Gap 9 mmol/L (8-16); Aspartate Amino Transferase 27 U/L (14-36); Bilirubin,Total 0.5 mg/dL (0.2-1.3); Blood Urea Nitrogen 33 mg/dL (7-17); Calcium 9.2 mg/dL (8.4-10.2); Carbon Dioxide 28 mmol/L (22-30); Chloride 106 mmol/L (98-107); Estimated CRCL calculation 16 ml/min; Estimated Glomerular Filt Rate 27; Glucose 90 mg/dL (65-110); Potassium 3.5 mmol/L (3.4-5.0); Sodium 143 mmol/L (137-145)
--- NOTE | 2022-07-01 10:15 | PM.IMPN ---
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 Onc consulted thank you (2) Rib fractures: Code(s): S22.49XA - Multiple fractures of ribs, unspecified side, initial encounter for closed fracture Status: Acute Assessment and Plan: Rib fracture noted on CT ribs 9-10 fracture Pain control Monitor for changes (3) Hypertension: Code(s): I10 - Essential (primary) hypertension Status: Acute Assessment and Plan: BP elevated at 171/62 Continue home medications Really think this is a combination of rib pain and anxiety Trend BP Adjust therapy as indicated (4) Chronic kidney disease: Code(s): N18.9 - Chronic kidney disease, unspecified Status: Acute Assessment and Plan: Current BUN/Cr 33/1.80 Unknown baseline avoid nephrotoxic medications Trend labs Adjust therapy as indicated (5) High cholesterol: Code(s): E78.00 - Pure hypercholesterolemia, unspecified Status: Acute Assessment and Plan: Continue home statin medications (6) Paraparesis: Code(s): G82.20 - Paraplegia, unspecified Status: Acute Assessment and Plan: Notable right sided weakness 2 weeks ago Right side arm and leg affected Continue home aspirin, statin Brain MRI Multiple enhancing masses of the left parietal and possibly the right parietal lobes, most likely metastatic disease. Carotid Doppler <50% carotid doppler Neurology consulted Time Spent With Patient Time: 15 extra minutes talking with the patient about the plan of care and how she was feeling at this time. Time with patient: Greater than 35 minutes Subjective Date/time seen: 07/01/22 1015 Interval history: 07/01/22 1015 patient stated that she is feeling little better today. She still having lot of rib pain that she rates a 9/10. She also stated that she is a little weak. She denies any nausea, vomiting, diarrhea, constipation, chest pain, shortness of breath. Her blood pressure is elevated at 170 1/62 she did make note of that and stated that she was not sure why it was so high. She also stated that she is very anxious. Chest CT did not indicate any source of metastatic cancer. It did show some emphysema. 06/30/22 1115 Patient seems to be doing okay today. I did explain to her what her MRI findings were with some 6 lesions. Consult Oncology and started the workup for metastatic disease. Patient seems to take it okay but then not okay. She denies any chest pain, shortness of breath, nausea, vomiting, diarrhea, constipation. her daughter was present as well and would like for the patient to have outpatient PT OT. 06/30/22? 0300 ? Patient is an 86-year-old female with a past medical history of hypertension, hyperlipidemia, chronic kidney disease who presented to the ED after falling in the shower.? Patient stated that she got a little dizzy while showering and fell out and was half and half out sugars screaming her daughter came and saw her.? She stated about 2 weeks ago she went to [facility], when she got back she she was feeling fine, however, the next morning she woke up with right sided upper and lower extremity weakness and just felt Weird. ? She stated that her symptoms have been getting better, however, she is still having some right leg weakness.? She denied having any slurred speech, facial droop, visual changes, or loss of conscientiousness.? She did go to see her PCP who told her that she had a stroke, but it does not seem that she had any further workup.? She did s
--- NOTE | 2022-07-01 10:15 | P.PNIM_ITS ---
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 * Onc consulted thank you (2) Rib fractures: Code(s): S22.49XA - Multiple fractures of ribs, unspecified side, initial encounter for closed fracture Status: Acute Assessment and Plan: * Rib fracture noted on CT ribs 9-10 fracture * Pain control * Monitor for changes (3) Hypertension: Code(s): I10 - Essential (primary) hypertension Status: Acute Assessment and Plan: * BP elevated at 171/62 * Continue home medications * Really think this is a combination of rib pain and anxiety * Trend BP * Adjust therapy as indicated (4) Chronic kidney disease: Code(s): N18.9 - Chronic kidney disease, unspecified Status: Acute Assessment and Plan: * Current BUN/Cr 33/1.80 * Unknown baseline * avoid nephrotoxic medications * Trend labs * Adjust therapy as indicated (5) High cholesterol: Code(s): E78.00 - Pure hypercholesterolemia, unspecified Status: Acute Assessment and Plan: * Continue home statin medications (6) Paraparesis: Code(s): G82.20 - Paraplegia, unspecified Status: Acute Assessment and Plan: * Notable right sided weakness 2 weeks ago * Right side arm and leg affected * Continue home aspirin, statin * Brain MRI Multiple enhancing masses of the left parietal and possibly the right parietal lobes, most likely metastatic disease. * Carotid Doppler <50% carotid doppler * Neurology consulted Time Spent With Patient Time: 15 extra minutes talking with the patient about the plan of care and how she was feeling at this time. Time with patient: Greater than 35 minutes Subjective Date/time seen: 07/01/22 1015 Interval history: 07/01/22 1015 patient stated that she is feeling little better today. She still having lot of rib pain that she rates a 9/10. She also stated that she is a little weak. She denies any nausea, vomiting, diarrhea, constipation, chest pain, shortness of breath. Her blood pressure is elevated at 170 1/62 she did make note of that and stated that she was not sure why it was so high. She also stated that she is very anxious. Chest CT did not indicate any source of metastatic cancer. It did show some emphysema. 06/30/22 1115 Patient seems to be doing okay today. I did explain to her what her MRI findings were with some 6 lesions. Consult Oncology and started the workup for metastatic disease. Patient seems to take it okay but then not okay. She denies any chest pain, shortness of breath, nausea, vomiting, diarrhea, constipation. her daughter was present as well and would like for the patient to have outpatient PT OT. 06/30/22? 0300 ? Patient is an 86-year-old female with a past medical history of hypertension, hyperlipidemia, chronic kidney disease who presented to the ED after falling in the shower.? Patient stated that she got a little dizzy while showering and fell out and was half and half out sugars screaming her daughter came and saw her.? She stated about 2 weeks
[2022-07-01] MEDS: HYDROcodone/acetaminophen (*CRX) 5-325 MG TABLET 1 TAB PO ×2 (17:01→23:24)
[2022-07-01] MEDS: MIRTAZAPINE 7.5 MG TABLET PO (20:23)
[2022-07-02] VITALS (12 sets, daily range): BP systolic 101–154; BP diastolic 50–70; PULSE 54–64; RESP 16–20; TEMP 35.9–36.4; O2SAT 94–98
[2022-07-02 06:57] LABS: Basophils Absolute Auto 0.1 K/mm3 (0.0-0.1); Basophils Percent Auto 0.7 % (0.2-1.2); Eosinophils Absolute Auto 0.5 K/mm3 (0-0.3); Eosinophils Percent Auto 6.4 % (0-4.4); Hemoglobin 14.4 g/dL (12.0-15.0); Immature Granulocyte Absolute 0.02 K/mm3 (0.00-0.031); Immature Granulocyte Percent A 0.3 % (0-0.5); Immature Platelet Fraction Pct 5.1 % (0.9-11.2); Lymphocytes Absolute Auto 1.81 K/mm3 (0.9-3.2); Lymphocytes Percent Auto 24.2 % (18.3-44.2); Mean Corpuscular HGB Conc 33.5 g/dl (32-36); Mean Corpuscular Hemoglobin 31.1 pg (26-34); Mean Corpuscular Volume 92.9 fl (80-100); Mean Platelet Volume 10.7 fl (7.4-10.4); Monocytes Absolute Auto 0.8 K/mm3 (0.1-0.6); Monocytes Percent Auto 10.4 % (2.6-8.5); Neutrophils Absolute Auto 4.3 K/mm3 (1.3-6.7); Platelet Count Result 241 k/mm3 (150-375); Red Blood Count 4.63 M/mm3 (4.2-5.4); Red Cell Distribution Width 12.5 % (11.5-14.5); White Blood Count 7.5 K/mm3 (4.5-10.0)
[2022-07-02 07:03] LABS: Alanine Aminotransferase 16 U/L (6-35); Albumin Level 4.2 g/dL (3.5-5.1); Alkaline Phosphatase 79 U/L (38-126); Anion Gap 8 mmol/L (8-16); Aspartate Amino Transferase 25 U/L (14-36); Bilirubin,Total 0.5 mg/dL (0.2-1.3); Blood Urea Nitrogen 38 mg/dL (7-17); Calcium 9.3 mg/dL (8.4-10.2); Carbon Dioxide 28 mmol/L (22-30); Chloride 103 mmol/L (98-107); Estimated CRCL calculation 17 ml/min; Estimated Glomerular Filt Rate 29; Glucose 90 mg/dL (65-110); Magnesium 2.2 mg/dL (1.6-2.3); Potassium 3.8 mmol/L (3.4-5.0); Sodium 139 mmol/L (137-145)
[2022-07-02] MEDS: HYDROcodone/acetaminophen (*CRX) 5-325 MG TABLET 1 TAB PO ×2 (09:59→18:48)
[2022-07-02] MEDS: METOPROLOL SUCCINATE EXT REL 100 MG TABCR PO (10:00)
[2022-07-02] MEDS: TORSEMIDE 10 MG TABLET 5 MG PO (10:00)
[2022-07-02] MEDS: PARoxetine 10 MG TABLET PO (10:00)
--- NOTE | 2022-07-02 10:00 | P.PNIM_ITS ---
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 * Onc consulted thank you (2) Rib fractures: Code(s): S22.49XA - Multiple fractures of ribs, unspecified side, initial encounter for closed fracture Status: Acute Assessment and Plan: * Rib fracture noted on CT ribs 9-10 fracture * Pain control * Monitor for changes (3) Hypertension: Code(s): I10 - Essential (primary) hypertension Status: Acute Assessment and Plan: * BP elevated at 146/55 * Continue home medications * Really think this is a combination of rib pain and anxiety * Trend BP * Adjust therapy as indicated (4) Chronic kidney disease: Code(s): N18.9 - Chronic kidney disease, unspecified Status: Acute Assessment and Plan: * Current BUN/Cr 38/1.70 * Unknown baseline * avoid nephrotoxic medications * Trend labs * Adjust therapy as indicated (5) High cholesterol: Code(s): E78.00 - Pure hypercholesterolemia, unspecified Status: Acute Assessment and Plan: * Continue home statin medications (6) Paraparesis: Code(s): G82.20 - Paraplegia, unspecified Status: Acute Assessment and Plan: * Notable right sided weakness 2 weeks ago * Right side arm and leg affected * Continue home aspirin, statin * Brain MRI Multiple enhancing masses of the left parietal and possibly the right parietal lobes, most likely metastatic disease. * Carotid Doppler <50% carotid doppler * Neurology consulted Time Spent With Patient Time with patient: Greater than 35 minutes Subjective Date/time seen: 07/02/22 10:00 Interval history: 07/02/22 1000 Patient stated that she is doing okay. She still having a lot of rib pain. She denies any chest pain, shortness a breath, nausea, vomiting, diarrhea or constipation. She states she is still little weak and shaky however she is still working with PT and OT. Labs remained stable at this time awaiting Oncology for further instructions with the new metastatic lesions. 07/01/22 1015 patient stated that she is feeling little better today. She still having lot of rib pain that she rates a /10. She also stated that she is a little weak. She denies any nausea, vomiting, diarrhea, constipation, chest pain, shortness of breath. Her blood pressure is elevated at 170 she did make note of that and stated that she was not sure why it was so high. She also stated that she is very anxious. Chest CT did not indicate any source of metastatic cancer. It did show some emphysema. 06/30/22 1115 Patient seems to be doing okay today. I did explain to her what her MRI findings were with some 6 lesions. Consult Oncology and started the workup for metastatic disease. Patient seems to take it okay but then not okay. She aidee es any chest pain, shortness of breath, nausea, vomiting, diarrhea, constipation. her daughter was present as well and would like for the patient to have outpatient PT OT. 06/30/22? 0300 ? Patient is an 86-year-old female with a past medical
--- NOTE | 2022-07-02 10:00 | PM.IMPN ---
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 Onc consulted thank you (2) Rib fractures: Code(s): S22.49XA - Multiple fractures of ribs, unspecified side, initial encounter for closed fracture Status: Acute Assessment and Plan: Rib fracture noted on CT ribs 9-10 fracture Pain control Monitor for changes (3) Hypertension: Code(s): I10 - Essential (primary) hypertension Status: Acute Assessment and Plan: BP elevated at 146/55 Continue home medications Really think this is a combination of rib pain and anxiety Trend BP Adjust therapy as indicated (4) Chronic kidney disease: Code(s): N18.9 - Chronic kidney disease, unspecified Status: Acute Assessment and Plan: Current BUN/Cr 38/1.70 Unknown baseline avoid nephrotoxic medications Trend labs Adjust therapy as indicated (5) High cholesterol: Code(s): E78.00 - Pure hypercholesterolemia, unspecified Status: Acute Assessment and Plan: Continue home statin medications (6) Paraparesis: Code(s): G82.20 - Paraplegia, unspecified Status: Acute Assessment and Plan: Notable right sided weakness 2 weeks ago Right side arm and leg affected Continue home aspirin, statin Brain MRI Multiple enhancing masses of the left parietal and possibly the right parietal lobes, most likely metastatic disease. Carotid Doppler <50% carotid doppler Neurology consulted Time Spent With Patient Time with patient: Greater than 35 minutes Subjective Date/time seen: 07/02/22 10:00 Interval history: 07/02/22 1000 Patient stated that she is doing okay. She still having a lot of rib pain. She denies any chest pain, shortness a breath, nausea, vomiting, diarrhea or constipation. She states she is still little weak and shaky however she is still working with PT and OT. Labs remained stable at this time awaiting Oncology for further instructions with the new metastatic lesions. 07/01/22 1015 patient stated that she is feeling little better today. She still having lot of rib pain that she rates a 9/10. She also stated that she is a little weak. She denies any nausea, vomiting, diarrhea, constipation, chest pain, shortness of breath. Her blood pressure is elevated at 170 1/62 she did make note of that and stated that she was not sure why it was so high. She also stated that she is very anxious. Chest CT did not indicate any source of metastatic cancer. It did show some emphysema. 06/30/22 1115 Patient seems to be doing okay today. I did explain to her what her MRI findings were with some 6 lesions. Consult Oncology and started the workup for metastatic disease. Patient seems to take it okay but then not okay. She denies any chest pain, shortness of breath, nausea, vomiting, diarrhea, constipation. her daughter was present as well and would like for the patient to have outpatient PT OT. 06/30/22? 0300 ? Patient is an 86-year-old female with a past medical history of hypertension, hyperlipidemia, chronic kidney disease who presented to the ED after falling in the shower.? Patient stated that she got a little dizzy while showering and fell out and was half and half out sugars screaming her daughter came and saw her.? She stated about 2 weeks ago she went to [facility], when she got back she she was feeling fine, however, the next morning she woke up with right sided upper and lower extremity weakness and just felt Weird. ? She stated that her symptoms have been getting better,
[2022-07-02] MEDS: ASPIRIN 81 MG CHEWABLE TABLET PO (10:01)
[2022-07-02] MEDS: ENOXAPARIN 30 MG/0.3 ML SYRINGE SUB-Q (10:02)
[2022-07-02] MEDS: FAMOTIDINE 20 MG TABLET PO ×2 (10:02→17:14)
[2022-07-02] MEDS: ISOSORBIDE MONONITRATE 60 MG TAB.ER.24H PO (10:02)
[2022-07-02] MEDS: amLODIPine BESYLATE 5 MG TABLET 10 MG PO (10:02)
[2022-07-02] MEDS: PRAVASTATIN SODIUM 20 MG TABLET 40 MG PO (13:29)
--- NOTE | 2022-07-02 15:26 | P.CDI_ITS ---
CDI Query Clarification Request H&P dated 06/30 documents: TIA (transient ischemic attack): ?Code(s): G45.9 - Transient cerebral ischemic attack, unspecified ?Status:?Acute ?Assessment and Plan: * Notable right sided weakness 2 weeks ago * Right side arm and leg affected * Continue home aspirin, statin, consider Plavix * Brain MRI?Multiple enhancing masses of the left parietal and possibly the right parietal lobes, most likely metastatic disease. 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 * Onc consulted thank you -Please clarify if diagnosis TIA has been ruled in or ruled out. -Other diagnosis, please specify. -Unable to determine <Sandi Solis - Last Filed: 07/02/22 15:32> H&P dated 06/30 documents: TIA (transient ischemic attack): ?Code(s): G45.9 - Transient cerebral ischemic attack, unspecified ?Status:?Acute ?Assessment and Plan: * Notable right sided weakness 2 weeks ago * Right side arm and leg affected * Continue home aspirin, statin, consider Plavix * Brain MRI?Multiple enhancing masses of the left parietal and possibly the right parietal lobes, most likely metastatic disease. * Carotid Doppler <50% carotid doppler * NIH not valid since last known normal was 2 weeks ago * Not qualified for tPA * Neurology consulted. 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 * Onc consulted thank you -Please clarify if diagnosis TIA has been ruled in or ruled out. -Other diagnosis, please specify. -Unable to determine <NEMO Chacon - Last Filed: 07/03/22 07:59> Clarified Diagnosis (1) TIA (transient ischemic attack): Code(s): G45.9 - Transient cerebral ischemic attack, unspecified <Sandi oSlis - Last Filed: 07/02/22 15:32> Status: Acute <Sandi Solis - Last Filed: 07/02/22 15:32> Assessment and Plan: * Ruled out <NEMO Chacon - Last Filed: 07/03/22 07:59> Assessment and Plan: TIA ruled out, so taken off care plan <NEMO Chacon - Last Filed: 07/03/22 07:59>
--- NOTE | 2022-07-02 15:26 | WPDCDIQUERY2 ---
CDI Query Clarification Request H&P dated 06/30 documents: TIA (transient ischemic attack): ?Code(s): G45.9 - Transient cerebral ischemic attack, unspecified ?Status:?Acute ?Assessment and Plan: Notable right sided weakness 2 weeks ago Right side arm and leg affected Continue home aspirin, statin, consider Plavix Brain MRI?Multiple enhancing masses of the left parietal and possibly the right parietal lobes, most likely metastatic disease. 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 Onc consulted thank you -Please clarify if diagnosis TIA has been ruled in or ruled out. -Other diagnosis, please specify. -Unable to determine <Sandi Solis - Last Filed: 07/02/22 15:32> H&P dated 06/30 documents: TIA (transient ischemic attack): ?Code(s): G45.9 - Transient cerebral ischemic attack, unspecified ?Status:?Acute ?Assessment and Plan: Notable right sided weakness 2 weeks ago Right side arm and leg affected Continue home aspirin, statin, consider Plavix Brain MRI?Multiple enhancing masses of the left parietal and possibly the right parietal lobes, most likely metastatic disease. Carotid Doppler <50% carotid doppler NIH not valid since last known normal was 2 weeks ago Not qualified for tPA Neurology consulted. 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 Onc consulted thank you -Please clarify if diagnosis TIA has been ruled in or ruled out. -Other diagnosis, please specify. -Unable to determine <NEMO Chacon - Last Filed: 07/03/22 07:59> Clarified Diagnosis (1) TIA (transient ischemic attack): Code(s): G45.9 - Transient cerebral ischemic attack, unspecified <Sandi Solis - Last Filed: 07/02/22 15:32> Status: Acute <Sandi Solis - Last Filed: 07/02/22 15:32> Assessment and Plan: Ruled out <NEMO Chacon - Last Filed: 07/03/22 07:59> Assessment and Plan: TIA ruled out, so taken off care plan <NEMO Chacon - Last Filed: 07/03/22 07:59>
[2022-07-02] MEDS: polyethylene glycoL 3350 17 GM POWD.PACK PO (15:39)
[2022-07-02] MEDS: SENNA/DOCUSATE SODIUM TABLET 1 TAB PO (15:40)
--- NOTE | 2022-07-02 18:43 | PDONCCN ---
HPI - Date of Consult Date/Time: 07/02/22 18:43 Requesting Physician: Jeet Zacarias MD Primary Care Provider: PHYSICIAN NOT ON STAFF - Consult Narrative Reason for consult: Brain mass Narrative: Afia Benjamin is a 86 year old female with remote history of smoking quit in 1983 used to smoke half pack per day for 30 years duration along with history of chronic kidney disease, hyperlipidemia and hypertension came into the hospital status post fall with right-sided weakness. He complain of 5-10 lb weight loss. Denies any chest pain and shortness of breath. She denies any cough and hemoptysis. Denies any breast masses. Her last mammogram was long time ago. MRI brain showed multiple enhancing masses of the left parietal and possibly right parietal lobe most likely metastatic disease. There was 6 of them largest 3.6 x 2.3 cm with central necrosis. CT abdomen and pelvis showed 9 and 10th right rib fracture with no acute and abdominal or pelvis abnormality. Patient has a history of hysterectomy in the past. CT chest showed emphysema with small hiatal hernia without any other abnormalities. No focal lytic or blastic lesions. Review of Systems - Review of Systems All systems reviewed & are unremarkable except as noted in HPI and [facility] Medical History: Medical History (Last Updated 06/30/22 @ 08:00 by NEMO Chacon) Chronic kidney disease High cholesterol Hypertension UTI (urinary tract infection) Surgical History: Surgical History (Last Reviewed 06/30/22 @ 07:54 by NEMO Chacon) H/O repair of right rotator cuff History of hysterectomy Family History: Family History (Last Updated 06/30/22 @ 07:55 by NEMO Chacon) Father Acute myocardial infarction Stomach cancer Heart disease Sibling Ovarian cancer Stomach cancer Diabetes mellitus - Social History Social History: Social History (Last Reviewed 06/30/22 @ 03:25 by Ivana Lowe MD) Gender Identity: Gender identity (if verbalized by the patient): Female Alcohol Use: Alcohol intake: former Alcohol use details: rare social Substance Use: Substance use: never Others: Spiritual care concerns: No Smoking Status: Smoking status: Never smoker Exam - Vital Signs Vital Signs - 24 hr 07/01/22 20:52 07/01/22 20:00 07/01/22 20:05 Temperature 36.6 C Pulse Rate 61 63 65 Respiratory Rate 18 Blood Pressure 140/55 L 133/57 L 126/93 H Pulse Oximetry 98 Oxygen Delivery 07/01/22 20:10 07/01/22 20:00 07/01/22 20:00 Temperature Pulse Rate 68 59 L Respiratory Rate Blood Pressure 139/98 H Pulse Oximetry Oxygen Delivery Room Air 07/02/22 00:00 07/02/22 04:00 07/02/22 06:00 Temperature 35.9 C L Pulse Rate 54 L 56 L 64 Respiratory Rate 20 Blood Pressure 146/55 H Pulse Oximetry 98 Oxygen Delivery 07/02/22 09:27 07/02/22 09:30 07/02/22 09:30 Temperature 36.1 C L Pulse Rate 59 L Respiratory Rate 18 Blood Pressure 119/65 154/57 H 148/66 H Pulse Oximetry 98 Oxygen Delivery 07/02/22 10:00 07/02/22 08:00 07/02/22 13:50 Temperature 36.4 C L Pulse Rate 59 L 63 60 Respiratory Rate 18 Blood Pressure 101/70 Pulse Oximetry 95 Oxygen Delivery 07/02/22 08:00 07/02/22 12:00 07/02/22 16:00 Temperature Pulse Rate 63 54 L Respiratory Rate Blood Pressure Pulse Oximetry Oxygen Delivery Room Air - Exam HEENT: EOMI, PERRLA, mucous membranes moist and pink Neck: supple. No: JVD Lungs: clear to auscultation, normal air movement, decrease breath sounds Heart: no murmurs, gallops, or rubs, regular rhythm, regular rate Abdomen: abdomen soft, non-distended, normal bowel sounds Extremities: normal pulses Integumentary: no abnormalities Neurological: normal speech Psychological: mental status NL, mood NL (Bilateral breast examination showed no masses lymphadenopathy) - Lab Results
[2022-07-02] MEDS: MORPHINE SULFATE (*CRX) 2 MG/ML INJ 1 MG IV PUSH (19:31)
[2022-07-02] MEDS: MIRTAZAPINE 7.5 MG TABLET PO (21:03)
[2022-07-03] VITALS (10 sets, daily range): BP systolic 114–163; BP diastolic 46–73; PULSE 49–66; RESP 16–18; TEMP 36.2–36.9; O2SAT 94–99
[2022-07-03] MEDS: HYDROcodone/acetaminophen (*CRX) 5-325 MG TABLET 1 TAB PO ×2 (05:01→09:27)
[2022-07-03 06:00] LABS: Basophils Percent Auto 0.6 % (0.2-1.2); Eosinophils Absolute Auto 0.4 K/mm3 (0-0.3); Eosinophils Percent Auto 5.1 % (0-4.4); Hematocrit 39.9 % (37.0-47.0); Hemoglobin 13.5 g/dL (12.0-15.0); Immature Granulocyte Absolute 0.02 K/mm3 (0.00-0.031); Immature Granulocyte Percent A 0.3 % (0-0.5); Lymphocytes Absolute Auto 1.54 K/mm3 (0.9-3.2); Lymphocytes Percent Auto 21.7 % (18.3-44.2); Mean Corpuscular HGB Conc 33.8 g/dl (32-36); Mean Corpuscular Hemoglobin 30.6 pg (26-34); Mean Corpuscular Volume 90.5 fl (80-100); Mean Platelet Volume 10.6 fl (7.4-10.4); Monocytes Absolute Auto 0.7 K/mm3 (0.1-0.6); Monocytes Percent Auto 10.3 % (2.6-8.5); Neutrophils Absolute Auto 4.4 K/mm3 (1.3-6.7); Platelet Count Result 254 k/mm3 (150-375); Red Blood Count 4.41 M/mm3 (4.2-5.4); Red Cell Distribution Width 12.4 % (11.5-14.5); White Blood Count 7.1 K/mm3 (4.5-10.0)
[2022-07-03 06:30] LABS: Alanine Aminotransferase 15 U/L (6-35); Albumin Level 3.8 g/dL (3.5-5.1); Alkaline Phosphatase 74 U/L (38-126); Anion Gap 8 mmol/L (8-16); Aspartate Amino Transferase 27 U/L (14-36); Bilirubin,Total 0.5 mg/dL (0.2-1.3); Blood Urea Nitrogen 35 mg/dL (7-17); Calcium 9.1 mg/dL (8.4-10.2); Carbon Dioxide 26 mmol/L (22-30); Chloride 103 mmol/L (98-107); Estimated CRCL calculation 19 ml/min; Estimated Glomerular Filt Rate 33; Glucose 107 mg/dL (65-110); Magnesium 2.1 mg/dL (1.6-2.3); Potassium 3.6 mmol/L (3.4-5.0); Sodium 137 mmol/L (137-145)
[2022-07-03] MEDS: ACETAMINOPHEN 500 MG TABLET 1000 MG PO (07:48)
[2022-07-03] MEDS: ASPIRIN 81 MG CHEWABLE TABLET PO (07:53)
[2022-07-03] MEDS: polyethylene glycoL 3350 17 GM POWD.PACK PO (09:24)
[2022-07-03] MEDS: ENOXAPARIN 30 MG/0.3 ML SYRINGE SUB-Q (09:24)
[2022-07-03] MEDS: amLODIPine BESYLATE 5 MG TABLET 10 MG PO (09:24)
[2022-07-03] MEDS: FAMOTIDINE 20 MG TABLET PO ×2 (09:25→18:35)
[2022-07-03] MEDS: PRAVASTATIN SODIUM 20 MG TABLET 40 MG PO (09:25)
[2022-07-03] MEDS: SENNA/DOCUSATE SODIUM TABLET 1 TAB PO (09:25)
[2022-07-03] MEDS: METOPROLOL SUCCINATE EXT REL 100 MG TABCR PO (09:25)
[2022-07-03] MEDS: TORSEMIDE 10 MG TABLET 5 MG PO (09:26)
[2022-07-03] MEDS: PARoxetine 10 MG TABLET PO (09:26)
--- NOTE | 2022-07-03 09:30 | PM.IMPN ---
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 Onc consulted thank you Will need a PET scan outpatient Onc is consulting radiation provider (2) Paraparesis: Code(s): G82.20 - Paraplegia, unspecified Status: Acute Assessment and Plan: Notable right sided weakness 2 weeks ago Right side arm and leg affected Continue home aspirin, statin Brain MRI?Multiple enhancing masses of the left parietal and possibly the right parietal lobes, most likely metastatic disease. Carotid Doppler <50% carotid Doppler Neurology consulted thank you for your recommendations Fall precautions Acute episode reoccurred while walking to the bathroom. Repeat head CT performed showed no acute changes (3) Rib fractures: Code(s): S22.49XA - Multiple fractures of ribs, unspecified side, initial encounter for closed fracture Status: Acute Assessment and Plan: Rib fracture noted on CT ribs 9-10 fracture Pain control norco, oxycodone, tylenol, Morphine for break through pain Monitor for changes Will need outpatient pain medications (4) Hypertension: Code(s): I10 - Essential (primary) hypertension Status: Acute Assessment and Plan: BP elevated at 157/60 Continue home medications Really think this is a combination of rib pain and anxiety Trend BP Adjust therapy as indicated (5) Chronic kidney disease: Code(s): N18.9 - Chronic kidney disease, unspecified Status: Acute Assessment and Plan: Current BUN/Cr 35/1.50 Unknown baseline avoid nephrotoxic medications Trend labs Adjust therapy as indicated (6) High cholesterol: Code(s): E78.00 - Pure hypercholesterolemia, unspecified Status: Acute Assessment and Plan: Continue home statin medications (7) TIA (transient ischemic attack): Code(s): G45.9 - Transient cerebral ischemic attack, unspecified Status: Acute Assessment and Plan: Ruled out (8) Congestive heart failure: Code(s): I50.9 - Heart failure, unspecified Status: Acute Assessment and Plan: Echo shows an EF of 65-70% with grade 2 diastolic dysfunction Seems to be a chronic diastolic heart failure, not in acute exacerbation Could be contributing to her elevated blood pressure Trend urine output Trend daily weights Time Spent With Patient Time with patient: Greater than 35 minutes Subjective Date/time seen: 07/03/22929 Interval history: 07/03/22929 patient is complaining of pain. She stated that the [employer] was not working as well. She denies any current chest pain, shortness of breath, nausea, vomiting, diarrhea, constipation. She still weak and shaky especially on the right side. Patient had another acute episode of complete right sided weakness, while walking. Repeat head ct performed. No significant changes indicated. Talked with family about further care and work-up for the brain lesions. She does state that she feels a bit weak and shaky. Not sure if the family is wanting rehab at this time, since she will not be able to get a full outpatient work up. All options will be explored. 07/02/22 1000 Patient stated that she is doing okay.? She still having a lot of rib pain.? She denies any chest pain, shortness a breath, nausea, vomiting, diarrhea or constipation.? She states she is still little weak and shaky however she is still working with PT and OT.? Labs remained stable at this time awaiting Oncology for fu
--- NOTE | 2022-07-03 09:30 | P.PNIM_ITS ---
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 * Onc consulted thank you * Will need a PET scan outpatient * Onc is consulting radiation provider (2) Paraparesis: Code(s): G82.20 - Paraplegia, unspecified Status: Acute Assessment and Plan: * Notable right sided weakness 2 weeks ago * Right side arm and leg affected * Continue home aspirin, statin * Brain MRI?Multiple enhancing masses of the left parietal and possibly the right parietal lobes, most likely metastatic disease. * Carotid Doppler <50% carotid Doppler * Neurology consulted thank you for your recommendations * Fall precautions * Acute episode reoccurred while walking to the bathroom. * Repeat head CT performed showed no acute changes (3) Rib fractures: Code(s): S22.49XA - Multiple fractures of ribs, unspecified side, initial encounter for closed fracture Status: Acute Assessment and Plan: * Rib fracture noted on CT ribs 9-10 fracture * Pain control norco, oxycodone, tylenol, * Morphine for break through pain * Monitor for changes * Will need outpatient pain medications (4) Hypertension: Code(s): I10 - Essential (primary) hypertension Status: Acute Assessment and Plan: * BP elevated at 157/60 * Continue home medications * Really think this is a combination of rib pain and anxiety * Trend BP * Adjust therapy as indicated (5) Chronic kidney disease: Code(s): N18.9 - Chronic kidney disease, unspecified Status: Acute Assessment and Plan: * Current BUN/Cr 35/1.50 * Unknown baseline * avoid nephrotoxic medications * Trend labs * Adjust therapy as indicated (6) High cholesterol: Code(s): E78.00 - Pure hypercholesterolemia, unspecified Status: Acute Assessment and Plan: * Continue home statin medications (7) TIA (transient ischemic attack): Code(s): G45.9 - Transient cerebral ischemic attack, unspecified Status: Acute Assessment and Plan: * Ruled out (8) Congestive heart failure: Code(s): I50.9 - Heart failure, unspecified Status: Acute Assessment and Plan: * Echo shows an EF of 65-70% with grade 2 diastolic dysfunction * Seems to be a chronic diastolic heart failure, not in acute exacerbation * Could be contributing to her elevated blood pressure * Trend urine output * Trend daily weights Time Spent With Patient Time with patient: Greater than 35 minutes Subjective Date/time seen: 07/03/22929 Interval history: 07/03/22929 patient is complaining of pain. She stated that the [employer] was not working as well. She denies any current chest pain, shortness of breath, nausea, vomiting, diarrhea, constipation. She still weak and shaky especially on the right side. Patient had another acute episode of complete right sided weakness, while walking. Repeat head ct performed. No significant c
[2022-07-03] MEDS: ISOSORBIDE MONONITRATE 60 MG TAB.ER.24H PO (10:44)
[2022-07-03] MEDS: FUROSEMIDE INJ 40 MG/4 ML VIAL IV PUSH (12:55)
[2022-07-03] MEDS: MORPHINE SULFATE (*CRX) 2 MG/ML INJ 1 MG IV PUSH (13:42)
[2022-07-03] MEDS: MIRTAZAPINE 7.5 MG TABLET PO (20:51)
[2022-07-03] MEDS: oxyCODONE HCL (*CRX) 5 MG TAB IR PO (21:05)
[2022-07-03 21:53] LABS: CA-125 40 U/mL (<35)
[2022-07-04] MEDS: oxyCODONE HCL (*CRX) 5 MG TAB IR PO (01:05)
[2022-07-04 05:55] VITALS: BP 143/54; PULSE 58; RESP 20; TEMP 36.4; O2SAT 98
[2022-07-04 06:22] LABS: Alanine Aminotransferase 16 U/L (6-35); Alkaline Phosphatase 70 U/L (38-126); Anion Gap 14 mmol/L (8-16); Aspartate Amino Transferase 22 U/L (14-36); Bilirubin,Total 0.4 mg/dL (0.2-1.3); Blood Urea Nitrogen 34 mg/dL (7-17); Calcium 9.1 mg/dL (8.4-10.2); Carbon Dioxide 29 mmol/L (22-30); Chloride 99 mmol/L (98-107); Estimated CRCL calculation 17 ml/min; Estimated Glomerular Filt Rate 29; Glucose 106 mg/dL (65-110); Magnesium 2.1 mg/dL (1.6-2.3); Potassium 3.8 mmol/L (3.4-5.0); Sodium 142 mmol/L (137-145)
[2022-07-04 06:26] LABS: Basophils Absolute Auto 0.1 K/mm3 (0.0-0.1); Basophils Percent Auto 0.5 % (0.2-1.2); Eosinophils Absolute Auto 0.4 K/mm3 (0-0.3); Eosinophils Percent Auto 4.6 % (0-4.4); Hematocrit 41.4 % (37.0-47.0); Hemoglobin 13.7 g/dL (12.0-15.0); Immature Granulocyte Absolute 0.03 K/mm3 (0.00-0.031); Immature Granulocyte Percent A 0.3 % (0-0.5); Lymphocytes Absolute Auto 1.81 K/mm3 (0.9-3.2); Lymphocytes Percent Auto 19.7 % (18.3-44.2); Mean Corpuscular HGB Conc 33.1 g/dl (32-36); Mean Corpuscular Hemoglobin 31.2 pg (26-34); Mean Corpuscular Volume 94.3 fl (80-100); Mean Platelet Volume 10.9 fl (7.4-10.4); Monocytes Percent Auto 10.6 % (2.6-8.5); Neutrophils Absolute Auto 5.9 K/mm3 (1.3-6.7); Neutrophils Percent Auto 64.3 % (45.5-73.1); Platelet Count Result 255 k/mm3 (150-375); Red Blood Count 4.39 M/mm3 (4.2-5.4); Red Cell Distribution Width 12.8 % (11.5-14.5); White Blood Count 9.2 K/mm3 (4.5-10.0)
[2022-07-04 08:00] VITALS: BP 118/55; PULSE 61; RESP 18; TEMP 36; O2SAT 95
[2022-07-04] MEDS: SENNA/DOCUSATE SODIUM TABLET 1 TAB PO (08:41)
[2022-07-04] MEDS: ASPIRIN 81 MG CHEWABLE TABLET PO (08:41)
[2022-07-04] MEDS: ENOXAPARIN 30 MG/0.3 ML SYRINGE SUB-Q (08:42)
[2022-07-04] MEDS: FAMOTIDINE 20 MG TABLET PO (08:42)
[2022-07-04] MEDS: ISOSORBIDE MONONITRATE 60 MG TAB.ER.24H PO (08:42)
[2022-07-04] MEDS: PARoxetine 10 MG TABLET PO (08:42)
[2022-07-04] MEDS: polyethylene glycoL 3350 17 GM POWD.PACK PO (08:42)
[2022-07-04 08:43] VITALS: PULSE 68
[2022-07-04] MEDS: TORSEMIDE 10 MG TABLET 5 MG PO (08:43)
[2022-07-04] MEDS: PRAVASTATIN SODIUM 20 MG TABLET 40 MG PO (08:43)
[2022-07-04] MEDS: METOPROLOL SUCCINATE EXT REL 100 MG TABCR PO (08:43)
[2022-07-04] MEDS: amLODIPine BESYLATE 5 MG TABLET 10 MG PO (08:45)
[2022-07-04 11:17] VITALS: BP 102/78; BP 129/82; PULSE 63; PULSE 64; RESP 20; RESP 22; TEMP 36; O2SAT 93; O2SAT 96
[2022-07-04] MEDS: LIDOCAINE 5% PATCH 1 PATCH TRANSDERM (13:48)
[2022-07-04 13:57] VITALS: BP 126/43; PULSE 60; RESP 18; TEMP 36.5; O2SAT 94
--- NOTE | 2022-07-04 14:57 | P.PNIM_ITS ---
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 Radiation oncology consulted. * she will need need an outpatient PET scan and then biopsy location can be determined * start Decadron 10 mg IV x1 then 4 mg p.o. daily; add PPI for GI prophylaxis while on steroids * Monitor neuro status (2) Paraparesis: Code(s): G82.20 - Paraplegia, unspecified Status: Acute Assessment and Plan: Notable right sided weakness 2 weeks prior to admission and still present likely secondary to brain Mets as described above * Continue home aspirin, statin * Carotid Doppler <50% carotid disease bilaterally ICA * Neurology consulted and appreciate recommendations * Fall precautions * Acute episode reoccurred while walking to the bathroom - repeat head CT performed showed no acute changes * Decadron initiated as above (3) Rib fractures: Qualifiers: Encounter type: initial encounter Fracture type: closed Laterality: right Qualified Code(s): S22.41XA - Multiple fractures of ribs, right side, initial encounter for closed fracture Code(s): S22.49XA - Multiple fractures of ribs, unspecified side, initial encounter for closed fracture Status: Acute Assessment and Plan: Rib fracture noted on CT ribs 9-10 fracture * Pain control- change to extra-strength Tylenol 500 mg q.6 hours scheduled, Lidoderm patch q.12 hours scheduled, p.r.n. oxycodone and IV morphine for josh akthrough pain * Monitor for changes * incentive spirometry Q 12 hours while awake to prevent atelectasis (4) Hypertension: Qualifiers: Hypertension type: primary hypertension Qualified Code(s): I10 - Essential (primary) hypertension Code(s): I10 - Essential (primary) hypertension Status: Acute Assessment and Plan: chronic, stable, intermittently elevated SBP 114/46 to 163/66; may be a component of pain * Continue amlodipine, torsemide, metoprolol succinate, and isosorbide monon itrate at home doses * monitor vital signs and control pain as above * Orthostatic vital signs with mild decrease sitting to standing 129/82 to 102/78 patient is asymptomatic encourage oral fluid intake (5) Chronic kidney disease: Qualifiers: Chronic kidney disease stage: stage 4 (severe) Qualified Code(s): N18.4 - Chronic kidney disease, stage 4 (severe) Code(s): N18.9 - Chronic kidney disease, unspecified Status: Acute Assessment and Plan: CKD stage 4, GFR 29- 33, BUN 34-38, creatinine 1.5-1.7 * Unknown baseline * avoid nephrotoxic medications * Trend chemistry, monitor strict I's and O's * Adjust therapy as indicated (6) High cholesterol: Code(s): E78.00 - Pure hypercholesterolemia, unspecified Status: Acute Assessment and Plan: * Continue home statin medications
--- NOTE | 2022-07-04 14:57 | PM.IMPN ---
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 Radiation oncology consulted. she will need need an outpatient PET scan and then biopsy location can be determined start Decadron 10 mg IV x1 then 4 mg p.o. daily; add PPI for GI prophylaxis while on steroids Monitor neuro status (2) Paraparesis: Code(s): G82.20 - Paraplegia, unspecified Status: Acute Assessment and Plan: Notable right sided weakness 2 weeks prior to admission and still present likely secondary to brain Mets as described above Continue home aspirin, statin Carotid Doppler <50% carotid disease bilaterally ICA Neurology consulted and appreciate recommendations Fall precautions Acute episode reoccurred while walking to the bathroom - repeat head CT performed showed no acute changes Decadron initiated as above (3) Rib fractures: Qualifiers: Encounter type: initial encounter Fracture type: closed Laterality: right Qualified Code(s): S22.41XA - Multiple fractures of ribs, right side, initial encounter for closed fracture Code(s): S22.49XA - Multiple fractures of ribs, unspecified side, initial encounter for closed fracture Status: Acute Assessment and Plan: Rib fracture noted on CT ribs 9-10 fracture Pain control- change to extra-strength Tylenol 500 mg q.6 hours scheduled, Lidoderm patch q.12 hours scheduled, p.r.n. oxycodone and IV morphine for breakthrough pain Monitor for changes incentive spirometry Q 12 hours while awake to prevent atelectasis (4) Hypertension: Qualifiers: Hypertension type: primary hypertension Qualified Code(s): I10 - Essential (primary) hypertension Code(s): I10 - Essential (primary) hypertension Status: Acute Assessment and Plan: chronic, stable, intermittently elevated SBP 114/46 to 163/66; may be a component of pain Continue amlodipine, torsemide, metoprolol succinate, and isosorbide mononitrate at home doses monitor vital signs and control pain as above Orthostatic vital signs with mild decrease sitting to standing 129/82 to 102/78 patient is asymptomatic encourage oral fluid intake (5) Chronic kidney disease: Qualifiers: Chronic kidney disease stage: stage 4 (severe) Qualified Code(s): N18.4 - Chronic kidney disease, stage 4 (severe) Code(s): N18.9 - Chronic kidney disease, unspecified Status: Acute Assessment and Plan: CKD stage 4, GFR 29- 33, BUN 34-38, creatinine 1.5-1.7 Unknown baseline avoid nephrotoxic medications Trend chemistry, monitor strict I's and O's Adjust therapy as indicated (6) High cholesterol: Code(s): E78.00 - Pure hypercholesterolemia, unspecified Status: Acute Assessment and Plan: Continue home statin medications (7) TIA (transient ischemic attack): Code(s): G45.9 - Transient cerebral ischemic attack, unspecified Status: Ruled-out Assessment and Plan: Ruled out (8) Congestive heart failure: Qualifiers: Heart failure type: diastolic Heart failure chronicity: chronic Qualified Code(s): I50.32 - Chronic diastolic (congestive) heart failure Code(s): I50.9 - Heart failure, unspecified Status: Acute Assessment and Plan: Echo shows an EF of 65-70% with grade 2 diastolic dy
[2022-07-04] MEDS: ACETAMINOPHEN 500 MG TABLET PO (16:13)
[2022-07-04] MEDS: MIRTAZAPINE 7.5 MG TABLET PO (20:00)
[2022-07-04 22:00] VITALS: BP 119/53; PULSE 64; RESP 14; TEMP 36.1; O2SAT 95
[2022-07-05] MEDS: ACETAMINOPHEN 500 MG TABLET PO ×4 (00:51→17:48)
[2022-07-05 05:37] VITALS: BP 159/51; PULSE 69; RESP 16; TEMP 36.1; O2SAT 97
[2022-07-05 05:56] LABS: Hematocrit 41.4 % (37.0-47.0); Hemoglobin 13.8 g/dL (12.0-15.0); Mean Corpuscular HGB Conc 33.3 g/dl (32-36); Mean Corpuscular Hemoglobin 30.6 pg (26-34); Mean Corpuscular Volume 91.8 fl (80-100); Mean Platelet Volume 10.8 fl (7.4-10.4); Platelet Count Result 278 k/mm3 (150-375); Red Blood Count 4.51 M/mm3 (4.2-5.4); Red Cell Distribution Width 12.2 % (11.5-14.5); White Blood Count 10.1 K/mm3 (4.5-10.0)
[2022-07-05 07:26] LABS: Anion Gap 15 mmol/L (8-16); Blood Urea Nitrogen 48 mg/dL (7-17); Calcium 9.6 mg/dL (8.4-10.2); Carbon Dioxide 25 mmol/L (22-30); Chloride 100 mmol/L (98-107); Estimated CRCL calculation 14 ml/min; Estimated Glomerular Filt Rate 24; Glucose 146 mg/dL (65-110); Sodium 140 mmol/L (137-145)
[2022-07-05 08:00] VITALS: BP 134/56; PULSE 77; RESP 14; TEMP 36.9; O2SAT 96
[2022-07-05] MEDS: SODIUM CHLORIDE 0.9% IV 500 ML 100 ML IV CONT (09:00)
[2022-07-05] MEDS: DEXAMETHASONE 4 MG TABLET PO (09:01)
[2022-07-05] MEDS: PRAVASTATIN SODIUM 20 MG TABLET 40 MG PO (09:02)
[2022-07-05] MEDS: PARoxetine 10 MG TABLET PO (09:02)
[2022-07-05] MEDS: ISOSORBIDE MONONITRATE 60 MG TAB.ER.24H PO (09:02)
[2022-07-05] MEDS: PANTOPRAZOLE 40 MG TABLET PO (09:02)
[2022-07-05 09:03] VITALS: PULSE 69
[2022-07-05] MEDS: amLODIPine BESYLATE 5 MG TABLET 10 MG PO (09:03)
[2022-07-05] MEDS: ASPIRIN 81 MG CHEWABLE TABLET PO (09:03)
[2022-07-05] MEDS: METOPROLOL SUCCINATE EXT REL 100 MG TABCR PO (09:03)
[2022-07-05] MEDS: LIDOCAINE 5% PATCH 1 PATCH TRANSDERM (09:04)
[2022-07-05] MEDS: ENOXAPARIN 30 MG/0.3 ML SYRINGE SUB-Q (09:05)
[2022-07-05 10:43] VITALS: BP 129/84
[2022-07-05 11:00] VITALS: BP 117/77
[2022-07-05 14:00] VITALS: BP 131/55; PULSE 71; RESP 18; TEMP 36.3; O2SAT 94
[2022-07-05 15:20] LABS: Anion Gap 13 mmol/L (8-16); Blood Urea Nitrogen 46 mg/dL (7-17); Calcium 8.8 mg/dL (8.4-10.2); Carbon Dioxide 26 mmol/L (22-30); Chloride 94 mmol/L (98-107); Estimated CRCL calculation 18 ml/min; Estimated Glomerular Filt Rate 31; Glucose 123 mg/dL (65-110); Potassium 3.9 mmol/L (3.4-5.0); Sodium 133 mmol/L (137-145)
--- NOTE | 2022-07-05 16:33 | P.DS_ITS ---
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 Radiation oncology consulted. * she will need need an outpatient PET scan and then biopsy location can be determined * start Decadron 10 mg IV x1 then 4 mg p.o. daily; add PPI for GI prophylaxis while on steroids * Monitor neuro status (2) Paraparesis: Code(s): G82.20 - Paraplegia, unspecified Status: Acute Assessment and Plan: Notable right sided weakness 2 weeks prior to admission and still present likely secondary to brain Mets as described above * Continue home aspirin, statin * Carotid Doppler <50% carotid disease bilaterally ICA * Neurology consulted and appreciate recommendations * Fall precautions * Acute episode reoccurred while walking to the bathroom - repeat head CT performed showed no acute changes * Decadron initiated as above (3) Rib fractures: Qualifiers: Encounter type: initial encounter Fracture type: closed Laterality: right Qualified Code(s): S22.41XA - Multiple fractures of ribs, right side, initial encounter for closed fracture Code(s): S22.49XA - Multiple fractures of ribs, unspecified side, initial encounter for closed fracture Status: Acute Assessment and Plan: Rib fracture noted on CT ribs 9-10 fracture * Pain control- change to extra-strength Tylenol 500 mg q.6 hours scheduled, Lidoderm patch q.12 hours scheduled, p.r.n. oxycodone and IV morphine for breakthrough pain * Monitor for changes * incentive spirometry Q 12 hours while awake to prevent atelectasis (4) Hypertension: Qualifiers: Hypertension type: primary hypertension Qualified Code(s): I10 - Essential (primary) hypertension Code(s): I10 - Essential (primary) hypertension Status: Chronic Assessment and Plan: chronic, stable, intermittently elevated SBP 114/46 to 163/66; may be a component of pain * Continue amlodipine, torsemide, metoprolol succinate, and isosorbide mononitrate at home doses * monitor vital signs and control pain as above * Orthostatic vital signs with mild decrease sitting to standing 129/82 to 102/78 patient is asymptomatic encourage oral fluid intake (5) Chronic kidney disease: Qualifiers: Chronic kidney disease stage: stage 4 (severe) Qualified Code(s): N18.4 - Chronic kidney disease, stage 4 (severe) Code(s): N18.9 - Chronic kidney disease, unspecified Status: Acute Assessment and Plan: Acute on chronic, CKD stage 4, GFR 29- 33, BUN 34-38, creatinine 1.5-1.7 * Unknown baseline * avoid nephrotoxic medications * Trend chemistry, monitor strict I's and O's * Adjust therapy as indicated
--- NOTE | 2022-07-05 16:33 | PM.DS ---
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 Radiation oncology consulted. she will need need an outpatient PET scan and then biopsy location can be determined start Decadron 10 mg IV x1 then 4 mg p.o. daily; add PPI for GI prophylaxis while on steroids Monitor neuro status (2) Paraparesis: Code(s): G82.20 - Paraplegia, unspecified Status: Acute Assessment and Plan: Notable right sided weakness 2 weeks prior to admission and still present likely secondary to brain Mets as described above Continue home aspirin, statin Carotid Doppler <50% carotid disease bilaterally ICA Neurology consulted and appreciate recommendations Fall precautions Acute episode reoccurred while walking to the bathroom - repeat head CT performed showed no acute changes Decadron initiated as above (3) Rib fractures: Qualifiers: Encounter type: initial encounter Fracture type: closed Laterality: right Qualified Code(s): S22.41XA - Multiple fractures of ribs, right side, initial encounter for closed fracture Code(s): S22.49XA - Multiple fractures of ribs, unspecified side, initial encounter for closed fracture Status: Acute Assessment and Plan: Rib fracture noted on CT ribs 9-10 fracture Pain control- change to extra-strength Tylenol 500 mg q.6 hours scheduled, Lidoderm patch q.12 hours scheduled, p.r.n. oxycodone and IV morphine for breakthrough pain Monitor for changes incentive spirometry Q 12 hours while awake to prevent atelectasis (4) Hypertension: Qualifiers: Hypertension type: primary hypertension Qualified Code(s): I10 - Essential (primary) hypertension Code(s): I10 - Essential (primary) hypertension Status: Chronic Assessment and Plan: chronic, stable, intermittently elevated SBP 114/46 to 163/66; may be a component of pain Continue amlodipine, torsemide, metoprolol succinate, and isosorbide mononitrate at home doses monitor vital signs and control pain as above Orthostatic vital signs with mild decrease sitting to standing 129/82 to 102/78 patient is asymptomatic encourage oral fluid intake (5) Chronic kidney disease: Qualifiers: Chronic kidney disease stage: stage 4 (severe) Qualified Code(s): N18.4 - Chronic kidney disease, stage 4 (severe) Code(s): N18.9 - Chronic kidney disease, unspecified Status: Acute Assessment and Plan: Acute on chronic, CKD stage 4, GFR 29- 33, BUN 34-38, creatinine 1.5-1.7 Unknown baseline avoid nephrotoxic medications Trend chemistry, monitor strict I's and O's Adjust therapy as indicated (6) High cholesterol: Code(s): E78.00 - Pure hypercholesterolemia, unspecified Status: Chronic Assessment and Plan: Continue home statin medications (7) Congestive heart failure: Qualifiers: Heart failure chronicity: chronic Heart failure type: diastolic Qualified Code(s): I50.32 - Chronic diastolic (congestive) heart failure Code(s): I50.9 - Heart failure, unspecified Status: Chronic Assessment and Plan: Chronic, not in acute exacerbation. Echo shows an EF of 65
[2022-07-05 16:35] LABS: EDCOVIDSCREEN Negative (Negative)
[2022-07-07 09:50] LABS: CA 19-9 7 U/mL (<34)
== END 2022-07-05 23:10 | DRG 55 ==
LOC: ANHED 06-30 00:19 → ANH3MEDSUR 06-30 01:23
PROVIDERS: Nurse Practitioner; Admitting Provider Internal Medicine; Emergency Provider Emergency Medicine; Visit Provider Nurse Practitioner Family
DX: C79.31 Secondary malignant neoplasm of brain (principal); G82.20 Paraplegia, unspecified; I50.32 Chronic diastolic (congestive) heart failure; I13.0 Hypertensive heart and chronic kidney disease with heart failure and stage 1 through stage 4 chronic kidney disease, or unspecified chronic kidney disease; S22.41XA Multiple fractures of ribs, right side, initial encounter for closed fracture; C80.1 Malignant (primary) neoplasm, unspecified; N18.9 Chronic kidney disease, unspecified; E78.00 Pure hypercholesterolemia, unspecified; W19.XXXA Unspecified fall, initial encounter; Z20.822 Contact with and (suspected) exposure to COVID-19; Z79.82 Long term (current) use of aspirin
CPT/HCPCS: 36415; 70450; 70553; 71101; 71250; 74176; 80048; 80053; 82378; 83735; 85025; 85027; 85055; 86301; 86304; 87426; 93306; 93880; 97110; 97116; 97162; 97165; 97530; 97535; 99285; A9270; A9577; C9803; J1100; J1650; J1940; J2270; J7040; J8540; U0003; U0005

== ENCOUNTER → 2022-07-25 12:49 | Outpatient (CLI) | payer MEDICARE, OTHER, SELFPAY ==
--- NOTE | ~2022-07-25 | US_ITS ---
EXAMINATION: US soft tissue head and neck DATE: 07/25/2022 13:22 INDICATION: Thyroid lesion. TECHNIQUE: Multiple ultrasound images of the thyroid were obtained. COMPARISON: None. FINDINGS: The right thyroid lobe measures 3.5 x 1.8 x 1.0 cm. The left thyroid lobe measures 3.5 x 1.9 x 1.3 c m. In the right thyroid lobe, there is a 6 mm solid, isoechoic, wider than tall nodule with lobulate d margin without echogenic foci (TI-RADS TR4). In the right thyroid lobe, there is a 9 mm solid, isoe choic, wider than tall nodule with ill-defined margin without echogenic foci (TR3). In the left thyro id lobe, there is a 1.3 cm solid, isoechoic, wider than tall nodule with ill-defined margin without e chogenic foci (TR3). IMPRESSION: 1. Multinodular goiter, likely not clinically significant. No follow-up is needed. Reviewed, dictated and finalized at location A. IMPRESSION: 1. Multinodular goiter, likely not clinically significant. No follow-up is need ed.
== END ==
PROVIDERS: PCP Internal Medicine Hematology & Oncology; Visit Provider Internal Medicine Hematology & Oncology
DX: E04.2 Nontoxic multinodular goiter (principal)
CPT/HCPCS: 76536

== ENCOUNTER 2022-08-06 02:48 | Day surgery (SDC) | payer MEDICARE, OTHER, SELFPAY ==
[2022-07-27 14:12] VITALS: BMI 19.8
--- NOTE | 2022-08-06 13:27 | WPDANESEPPF ---
Anes - Initial Pre Proc Eval Procedure: Operation Date: 08/06/22 13:45 Proposed Procedures p Esophagogastroduodenoscopy - Jeffry Granda MD Date/Time: 08/06/22 13:27 Surgeon: Jeffry Granda MD Pre Op Diagnosis: abn pet scan, esophageal lesion Patient Data Age: 86 Gender: F Height: 1.65 m Weight: 54 kg Allergies Allergy/AdvReac Type Severity Reaction Status Date / Time niacin Allergy Redness of Verified 08/06/22 13:27 Skin Home Medications Medication Instructions Recorded Confirmed Type amlodipine 10 mg tablet 10 mg PO DAILY 10/11/21 07/27/22 History isosorbide mononitrate 60 mg 60 mg PO QAM 10/11/21 07/27/22 History tablet,extended release 24 hr metoprolol succinate 100 mg 100 mg PO DAILY 10/11/21 07/27/22 History tablet,extended release 24 hr mirtazapine 7.5 mg tablet 7.5 mg PO HS 10/11/21 07/27/22 History paroxetine HCl 10 mg tablet 10 mg PO DAILY 10/11/21 07/27/22 History pravastatin 40 mg tablet 40 mg PO DAILY 10/11/21 07/27/22 History torsemide 10 mg tablet 5 mg PO DAILY 10/11/21 07/27/22 History aspirin 81 mg tablet 81 mg PO DAILY 06/30/22 07/27/22 History acetaminophen 500 mg tablet 1,000 mg PO .q8 #10 tabs 07/05/22 07/27/22 Rx polyethylene glycol 3350 17 gram 17 g PO QAM PRN Constipation #14 ea 07/05/22 07/27/22 Rx oral powder packet (Miralax) sennosides 8.6 mg-docusate sodium 1 tab-cap PO DAILY #7 tabs 07/05/22 07/27/22 Rx 50 mg tablet (Senokot-S) famotidine 20 mg PO BID 07/27/22 07/27/22 History Patient hx anesthesia problems: none Family hx anesthesia problems: none Results Review: All pre-operative results and documents have been reviewed as part of the pre-operative evaluation. [facility] Past Medical History Medical History Chronic kidney disease High cholesterol Hypertension UTI (urinary tract infection) Surgical History Surgical History H/O repair of right rotator cuff History of hysterectomy Family History Family History Father Acute myocardial infarction Stomach cancer Heart disease Sibling Ovarian cancer Stomach cancer Diabetes mellitus Social History Social History Smoking packs per day: 1 Smoking cigarettes per day: 20.0 Years smoked: 20 Smoking pack-years: 20.00 Smoking status: Former smoker Alcohol intake: never Alcohol use details: rare social Substance use: never Substance use type: does not use Living arrangements: with family Gender identity (if verbalized by the patient): Female Spiritual care concerns: No Anes - Eval Final PreProcedure Day of Procedure 08/06/22 13:27 Patient weight: normal Heart: regular rate and rhythm Lungs: clear to auscultation Airway: Mallampati scale class II Neurological: alert and oriented Last oral intake: >/= 8 hours ASA classification: III Emergent: no Anesthesia type and monitoring: general GIVS and standard monitoring Results Review: All pre-operative results and documents have been reviewed as part of the pre-operative evaluation. Informed Consent: The patient's anesthetic plan and its attendant risks and benefits were discussed with the patient/family/POA. Questions were solicited and answers provided to the satisfaction of the patient/family/POA.
[2022-08-06 13:29] VITALS: BP 149/51; PULSE 61; RESP 18; TEMP 36.4; O2SAT 94; BMI 19.4
[2022-08-06] MEDS: LACTATED RINGERS 1,000 ML 150 ML IV CONT (13:33)
--- NOTE | 2022-08-06 14:04 | PM.HPGS ---
History of Present Illness History of Present Illness Consent: Risks, benefits, and alternatives have been discussed and questions answered. Patient agrees to proceed with procedure. Chief complaint: abn pet scan, esophageal lesion Narrative: Afia Benjamin is a 86 year old female Has recently been found to have brain metastases by CT scan of the brain. She has right upper quadrant weakness. She also has concomitant chronic kidney disease and congestive heart failure. Patient recently had PET scan which revealed uptake in the distal esophagus. EGD is requested. At this point no specific primary is noted is felt she has metastatic tumor to the brain. Review of Systems Review of Systems: Review of systems noncontributory. [facility] Past Medical History Medical History Chronic kidney disease High cholesterol Hypertension UTI (urinary tract infection) Surgical History Surgical History H/O repair of right rotator cuff History of hysterectomy Family History Family History Father Acute myocardial infarction Stomach cancer Heart disease Sibling Ovarian cancer Stomach cancer Diabetes mellitus Social History Social History Smoking packs per day: 1 Smoking cigarettes per day: 20.0 Years smoked: 20 Smoking pack-years: 20.00 Smoking status: Former smoker Alcohol intake: never Alcohol use details: rare social Substance use: never Substance use type: does not use Living arrangements: with family Gender identity (if verbalized by the patient): Female Spiritual care concerns: No Meds Home Medications and Allergies Home Medications Medication Instructions Recorded Confirmed Type amlodipine 10 mg tablet 10 mg PO DAILY 10/11/21 07/27/22 History isosorbide mononitrate 60 mg 60 mg PO QAM 10/11/21 07/27/22 History tablet,extended release 24 hr metoprolol succinate 100 mg 100 mg PO DAILY 10/11/21 07/27/22 History tablet,extended release 24 hr mirtazapine 7.5 mg tablet 7.5 mg PO HS 10/11/21 07/27/22 History paroxetine HCl 10 mg tablet 10 mg PO DAILY 10/11/21 07/27/22 History pravastatin 40 mg tablet 40 mg PO DAILY 10/11/21 07/27/22 History torsemide 10 mg tablet 5 mg PO DAILY 10/11/21 07/27/22 History aspirin 81 mg tablet 81 mg PO DAILY 06/30/22 07/27/22 History acetaminophen 500 mg tablet 1,000 mg PO .q8 #10 tabs 07/05/22 07/27/22 Rx polyethylene glycol 3350 17 gram 17 g PO QAM PRN Constipation #14 ea 07/05/22 07/27/22 Rx oral powder packet (Miralax) sennosides 8.6 mg-docusate sodium 1 tab-cap PO DAILY #7 tabs 07/05/22 07/27/22 Rx 50 mg tablet (Senokot-S) famotidine 20 mg PO BID 07/27/22 07/27/22 History Allergies Allergy/AdvReac Type Severity Reaction Status Date / Time niacin Allergy Redness of Verified 08/06/22 13:27 Skin Vital Signs Vital Signs - 24 hr 08/06/22 13:29 Temperature 97.5 F L Pulse Rate 61 Respiratory Rate 18 Blood Pressure 149/51 H Pulse Oximetry 94 Oxygen Delivery Room Air Exam Narrative: Physical exam reveals patient to be alert. Oriented x3. HEENT exam is unremarkable. Patient is anicteric. Lungs are clear. Heart without murmur. Abdomen bowel sounds present soft nontender with no organomegaly. Right upper extremity is mildly weak. Assessment and Plan Assessment and plan (1) Abnormal positron emission tomography (PET) scan: Code(s): R94.8 - Abnormal results of function studies of other organs and systems Status: Acute Assessment and Plan: Patient known to have brain metastases. PET scan reveals uptake in the distal esophagus for this reason EGD is requested will be performed to exclude lesion in the esophagus.
[2022-08-06 14:30] VITALS: BP 119/53; PULSE 69; RESP 18; O2SAT 93
[2022-08-06 14:40] VITALS: BP 128/86; PULSE 66; RESP 19; O2SAT 94
[2022-08-06 14:50] VITALS: BP 146/60; PULSE 67; RESP 23; O2SAT 94
== END 2022-08-06 15:04 | disposition home or self-care (01) ==
PROVIDERS: PCP Internal Medicine; Referring Provider Internal Medicine Hematology & Oncology; Visit Provider Internal Medicine Gastroenterology
PROC: 0DJ08ZZ Inspection of Upper Intestinal Tract, Via Natural or Artificial Opening Endoscopic (ICD-10-PCS; CPT 43235; principal; 2022-08-06 13:45)
DX: R93.3 Abnormal findings on diagnostic imaging of other parts of digestive tract (principal); C79.31 Secondary malignant neoplasm of brain; I13.0 Hypertensive heart and chronic kidney disease with heart failure and stage 1 through stage 4 chronic kidney disease, or unspecified chronic kidney disease; I50.9 Heart failure, unspecified; N18.9 Chronic kidney disease, unspecified; E78.00 Pure hypercholesterolemia, unspecified; Z79.82 Long term (current) use of aspirin; Z87.891 Personal history of nicotine dependence
CPT/HCPCS: 43239; 88305; J2704; J7120

== ENCOUNTER 2022-08-17 09:54 | Emergency (ER) | payer MEDICARE, OTHER, SELFPAY ==
[2022-08-17] VITALS (25 sets, daily range): BP systolic 109–152; BP diastolic 52–99; PULSE 70–87; RESP 10–24; TEMP 36.7–37.7; O2SAT 95–100
--- NOTE | ~2022-08-17 | CT_ITS ---
EXAMINATION: CT brain wo con DATE: 08/17/2022 10:11 INDICATION: Right sided flaccidity TECHNIQUE: Computed tomography (CT) of the head was performed without intravenous contrast. The mA wa s adjusted according to patient size. Iterative reconstruction technique was employed. Exam dose: 60 5.33 mGy-cm total exam DLP. COMPARISON: 07/02/2022 CT brain FINDINGS: There is interval enlargement of a left medial frontoparietal hypoattenuating mass, current ly measuring up to 2.7 cm AP and lateral millimeters width. Persistent hypoattenuating lesion in the posterior high left parietal area measuring up to 3.6 cm AP and 2.1 cm transverse dimension. There is an adjacent smaller hypoattenuating lesion measuring approx imately 8.5 x 15 mm in the lateral posterior parietal area. There is mass effect upon the posterior body of the left lateral ventricle. There is some effacement of the cortical sulci of the left parietal lobe compared to the right side. No midline shift is noted. No intracranial hemorrhage is detected. There are vertebral and carotid siphon internal carotid artery calcifications. There is nonspecific d iminished attenuation of the cerebral white matter, likely due to chronic small vessel ischemic gómez es. No intracranial hemorrhage. No subdural or epidural hematoma is detected. Bilateral ocular lens replacements. No skull fracture or bone destruction is detected. Included paranasal sinuses and mastoid air cells a re unremarkable. IMPRESSION: Several left cerebral mass lesions, with some increased size since 07/02/2022, likely enl arging metastatic lesions Cerebral atherosclerosis and chronic small vessel ischemic changes of the cerebral white matter Reviewed, dictated and finalized at [facility] Reviewed, dictated and finalized at [facility] [employer] IMPRESSION: Several left cerebral mass lesions, with some increased size since 07/02/2022, likely enlarging metastatic lesions Cerebral atherosclerosis and chronic small vessel ischemic changes of the cereb ral white matter
--- NOTE | ~2022-08-17 | XR_ITS ---
EXAMINATION: XR chest 1V INDICATION: Flaccid right side TECHNIQUE: AP view of the chest is obtained. COMPARISON: 06/10/2012 FINDINGS: There are minimal airspace opacities of the lung bases. No pleural effusion or pneumothorax . The cardiomediastinal silhouette is normal. Suture anchors are noted in the right humeral head. IMPRESSION: 1. Minimal bibasilar airspace opacity, consistent with atelectasis versus pneumonia Reviewed, dictated and finalized at [facility] [employer] IMPRESSION: 1. Minimal bibasilar airspace opacity, consistent with atelectasis versus pneum onia
--- NOTE | 2022-08-17 09:57 | ECG_ITS ---
Measurements Intervals [place] Rate: 82 P: 46 SD: 130 QRS: 14 QRSD: 83 T: 46 QT: 376 QTc: 440 Interpretive Statements SINUS RHYTHM BORDERLINE R WAVE PROGRESSION, ANTERIOR LEADS BASELINE ARTIFACT- II, III, AVR, AVL, AVF, V3 BORDERLINE ECG NO PREVIOUS ECG AVAILABLE FOR COMPARISON Electronically Signed On 08-17-2022 11:53:31 [employer] by Anthony Robledo D.O.
[2022-08-17 10:38] LABS: Basophils Absolute Auto 0.1 K/mm3 (0.0-0.1); Basophils Percent Auto 0.6 % (0.2-1.2); Eosinophils Absolute Auto 0.7 K/mm3 (0-0.3); Eosinophils Percent Auto 7.9 % (0-4.4); Hematocrit 42.3 % (37.0-47.0); Immature Granulocyte Absolute 0.02 K/mm3 (0.00-0.031); Immature Granulocyte Percent A 0.2 % (0-0.5); Mean Corpuscular HGB Conc 33.1 g/dl (32-36); Mean Corpuscular Hemoglobin 31.1 pg (26-34); Mean Platelet Volume 9.8 fl (7.4-10.4); Monocytes Absolute Auto 0.8 K/mm3 (0.1-0.6); Monocytes Percent Auto 8.4 % (2.6-8.5); Neutrophils Absolute Auto 5.8 K/mm3 (1.3-6.7); Neutrophils Percent Auto 64.9 % (45.5-73.1); Platelet Count Result 294 k/mm3 (150-375); Red Cell Distribution Width 13.7 % (11.5-14.5); White Blood Count 8.9 K/mm3 (4.5-10.0)
[2022-08-17 10:47] LABS: Glucose Point of Care 168 mg/dl (65-105)
[2022-08-17 10:53] LABS: Alanine Aminotransferase 17 U/L (6-35); Alkaline Phosphatase 90 U/L (38-126); Anion Gap 15 mmol/L (8-16); Aspartate Amino Transferase 21 U/L (14-36); Bilirubin,Total 0.4 mg/dL (0.2-1.3); Blood Urea Nitrogen 33 mg/dL (7-17); Calcium 8.7 mg/dL (8.4-10.2); Carbon Dioxide 27 mmol/L (22-30); Chloride 105 mmol/L (98-107); Estimated CRCL calculation 14 ml/min; Estimated Glomerular Filt Rate 24; Glucose 148 mg/dL (65-110); Partial Thromboplastin Time 26.6 SECONDS (22.3-36.8); Potassium 3.4 mmol/L (3.4-5.0); Prothrombin Time 12.8 Seconds (11.1-14.7); Sodium 147 mmol/L (137-145)
--- NOTE | 2022-08-17 10:54 | ED.NEUROSD ---
HPI - Neuro Symptoms/Deficit General Chief Complaint: Suspected CVA Stated Complaint: cva Time Seen by Provider: 08/17/22 10:04 Source: RN notes reviewed History of Present Illness HPI Narrative: Patient presents emergency department from home for right-sided weakness. History is per the patient and the daughter. Per the daughter patient has been having increased right-sided weakness for the past 2 days. The patient gotten to the point where she is now unable to lift her right arm or right leg regarding having increasing time getting her around. Patient has a history of right-sided weakness over the past several months she had been admitted and found to have brain lesions that were thought to be metastatic disease. She is being worked up by Dr. henao and had a PET scan that also showed a lesion on her esophagus and on her thyroid she had an EGD that had showed no lesions following that and she scheduled to follow-up with Dr. Wells next week she is not currently on any chemotherapy and they are trying to figure out where the brain lesions have come from the patient denies any chest pain shortness of breath abdominal pain nausea vomit Related Data Home Medications Medication Instructions Recorded Confirmed amlodipine 10 mg tablet 10 mg PO DAILY 10/11/21 07/27/22 isosorbide mononitrate 60 mg 60 mg PO QAM 10/11/21 07/27/22 tablet,extended release 24 hr metoprolol succinate 100 mg 100 mg PO DAILY 10/11/21 07/27/22 tablet,extended release 24 hr mirtazapine 7.5 mg tablet 7.5 mg PO HS 10/11/21 07/27/22 paroxetine HCl 10 mg tablet 10 mg PO DAILY 10/11/21 07/27/22 pravastatin 40 mg tablet 40 mg PO DAILY 10/11/21 07/27/22 torsemide 10 mg tablet 5 mg PO DAILY 10/11/21 07/27/22 aspirin 81 mg tablet 81 mg PO DAILY 06/30/22 07/27/22 famotidine 20 mg PO BID 07/27/22 07/27/22 Allergies Allergy/AdvReac Type Severity Reaction Status Date / Time niacin Allergy Redness of Verified 08/06/22 13:27 Skin Review of Systems Review of Systems: Gen.: Denies fevers or chills Eyes: Denies eye pain or visual change ENT: Denies congestion Respiratory: Denies shortness of breath or cough CV: Denies chest pain or palpitations GI: Denies abdominal pain nausea, emesis or diarrhea Musculoskeletal: Denies back pain or muscle pain Neuro: See HPI Skin: Denies rash Except as documented, all other systems reviewed and negative [facility] Past Medical History Medical History Chronic kidney disease High cholesterol Hypertension UTI (urinary tract infection) Surgical History Surgical History H/O repair of right rotator cuff History of hysterectomy Family History Family History Father Acute myocardial infarction Stomach cancer Heart disease Sibling Ovarian cancer Stomach cancer Diabetes mellitus Social History Social History Smoking packs per day: 1 Smoking cigarettes per day: 20.0 Years smoked: 20 Smoking pack-years: 20.00 Smoking status: Former smoker Alcohol intake: never Alcohol use details: rare social Substance use: never Substance use type: does not use Gender identity (if verbalized by the patient): Female Spiritual care concerns: No Exam Narrative: APPEARANCE: No acute distress, nontoxic, resting in bed HEENT: Normocephalic, atraumatic, OMM, Eyes: PERRLA, EOMI RESPIRATORY: No respiratory distress, clear to auscultation bilaterally with no rhonchi wheezing or rales CARDIOVASCULAR: RRR s murmur ABDOMINAL: Soft, nontender, nondistended MUSCULOSKELETAl: Moves all extremities. No clubbing, cyanosis or edema. NEURO: Awake and alert x3 following commands speech normal no facial droop, muscle strength 5 out of 5 in left upper extremity left lower extremity, muscle strength 3 out of 5 in the r
[2022-08-17 11:02] LABS: Troponin I < 0.012 ng/mL (0.000-0.034)
[2022-08-17 12:48] LABS: SARS-CoV-2 RNA PCR Negative
== END 2022-08-17 16:08 | disposition short-term general hospital (02) ==
PROVIDERS: Emergency Provider Emergency Medicine; PCP Internal Medicine
DX: R53.1 Weakness (principal); G93.89 Other specified disorders of brain; I12.9 Hypertensive chronic kidney disease with stage 1 through stage 4 chronic kidney disease, or unspecified chronic kidney disease; N18.9 Chronic kidney disease, unspecified; Z20.822 Contact with and (suspected) exposure to COVID-19; E78.00 Pure hypercholesterolemia, unspecified; Z87.440 Personal history of urinary (tract) infections; Z79.82 Long term (current) use of aspirin; Z90.710 Acquired absence of both cervix and uterus; Z87.891 Personal history of nicotine dependence; R91.8 Other nonspecific abnormal finding of lung field; I67.2 Cerebral atherosclerosis
CPT/HCPCS: 36415; 70450; 71045; 80053; 82948; 84484; 85025; 85610; 85730; 93005; 96374; 99285; J1100; U0003; U0005

== ENCOUNTER 2022-10-16 10:05 | Outpatient (CLI) | payer MEDICARE, OTHER, SELFPAY ==
[2022-10-16 10:24] LABS: Basophils Absolute Auto 0.1 K/mm3 (0.0-0.1); Basophils Percent Auto 0.5 % (0.2-1.2); Eosinophils Percent Auto 0.1 % (0-4.4); Hematocrit 36.5 % (37.0-47.0); Hemoglobin 11.9 g/dL (12.0-15.0); Immature Granulocyte Percent A 3.3 % (0-0.5); Lymphocytes Absolute Auto 1.04 K/mm3 (0.9-3.2); Lymphocytes Percent Auto 8.6 % (18.3-44.2); Mean Corpuscular HGB Conc 32.6 g/dl (32-36); Mean Corpuscular Volume 98.1 fl (80-100); Mean Platelet Volume 10.6 fl (7.4-10.4); Monocytes Absolute Auto 0.7 K/mm3 (0.1-0.6); Monocytes Percent Auto 5.5 % (2.6-8.5); Nucleated Red Blood Cells Perc 0.2 % (0.0-0.2); Platelet Count Result 184 k/mm3 (150-375); Red Blood Count 3.72 M/mm3 (4.2-5.4); Red Cell Distribution Width 14.8 % (11.5-14.5); White Blood Count 12.1 K/mm3 (4.5-10.0)
== END 2022-10-16 10:06 | disposition home or self-care (01) ==
LOC: ANHLAB 10:09
PROVIDERS: PCP Internal Medicine
DX: C71.9 Malignant neoplasm of brain, unspecified (principal)
CPT/HCPCS: 36415; 85025

== ENCOUNTER 2022-10-23 10:15 | Outpatient (CLI) | payer MEDICARE, OTHER, SELFPAY ==
[2022-10-23 10:34] LABS: Hematocrit 37.9 % (37.0-47.0); Hemoglobin 12.5 g/dL (12.0-15.0); Mean Corpuscular Hemoglobin 32.4 pg (26-34); Mean Corpuscular Volume 98.2 fl (80-100); Mean Platelet Volume 9.4 fl (7.4-10.4); Platelet Count Result 260 k/mm3 (150-375); Red Blood Count 3.86 M/mm3 (4.2-5.4); White Blood Count 19.2 K/mm3 (4.5-10.0)
[2022-10-23 10:40] LABS: Band Neutrophils Percent 2 % (0-6); Eosinophils Absolute Manual 0.38 K/mm3 (0.02-0.5); Eosinophils Percent Manual 2 % (0-4); Lymphocytes Absolute Manual 1.15 K/mm3 (1.1-4.5); Monocytes Absolute Manual 0.76 K/mm3 (0.1-0.90); Monocytes Percent Manual 4 % (3-9); Neutrophils Absolute Manual 16.89 K/mm3 (1.7-7.2); Neutrophils Percent Manual 86 % (46-73); Platelet Estimate Adequate (Adequate); Total Cells Counted 100
[2022-10-23 10:41] LABS: Schistocytes None Seen (NORMAL)
== END 2022-10-23 10:16 | disposition home or self-care (01) ==
LOC: ANHLAB 10:19
PROVIDERS: PCP Internal Medicine
DX: C71.9 Malignant neoplasm of brain, unspecified (principal)
CPT/HCPCS: 36415; 85025